=== PATIENT | male | born 1950 | race Caucasian/White ===

== ENCOUNTER → 2021-10-08 17:11 | Outpatient (BNVA) | payer BC, SELFPAY | PROVIDERS: Visit Provider Family Medicine | DX: E11.9 Type 2 diabetes mellitus without complications (principal); E78.00 Pure hypercholesterolemia, unspecified; I10 Essential (primary) hypertension; Z12.5 Encounter for screening for malignant neoplasm of prostate | CPT/HCPCS: 80053; 80061; 83036; 84443; 85025; G0103 ==

== ENCOUNTER → 2022-03-10 12:44 | Outpatient (BNVA) | payer BC, SELFPAY | PROVIDERS: Visit Provider Family Medicine | DX: E11.9 Type 2 diabetes mellitus without complications (principal); Z79.4 Long term (current) use of insulin; Z12.5 Encounter for screening for malignant neoplasm of prostate; E78.00 Pure hypercholesterolemia, unspecified; I10 Essential (primary) hypertension | CPT/HCPCS: 80053; 80061; 83036; 84443; 85025; G0103 ==

== ENCOUNTER → 2022-08-17 13:13 | Outpatient (BNVA) | payer BC, SELFPAY | PROVIDERS: Visit Provider Family Medicine | DX: E11.9 Type 2 diabetes mellitus without complications (principal); E78.00 Pure hypercholesterolemia, unspecified; I10 Essential (primary) hypertension | CPT/HCPCS: 80053; 80061; 83036; 84443; 85025 ==

== ENCOUNTER → 2023-01-22 11:51 | Outpatient (BNVA) | payer BC, SELFPAY | PROVIDERS: Visit Provider Family Medicine | DX: R07.89 Other chest pain (principal); E11.9 Type 2 diabetes mellitus without complications; Z79.4 Long term (current) use of insulin; E78.00 Pure hypercholesterolemia, unspecified; I10 Essential (primary) hypertension | CPT/HCPCS: 80053; 80061; 83036; 84443; 85025 ==

== ENCOUNTER → 2023-02-24 16:00 | Outpatient (BNVA) | payer BC, SELFPAY | PROVIDERS: PCP Family Medicine; Visit Provider Nurse Practitioner Family | DX: R63.4 Abnormal weight loss (principal) | CPT/HCPCS: 80053; 84443; 85025 ==

== ENCOUNTER 2023-03-01 15:48 | Observation (INO) | payer MEDICARE, SELFPAY ==
[2023-03-01] VITALS (11 sets, daily range): BP systolic 114–149; BP diastolic 70–91; PULSE 92–149; RESP 16–18; TEMP 36.3–36.6; O2SAT 95–98; BMI 25.9
--- NOTE | 2023-03-01 18:27 | XRR_ITS ---
PROCEDURE INFORMATION: Exam: XR Chest Exam date and time: 03/01/2023 6:48 PM Age: 73 years old Clinical indication: Other: N/v; Additional info: Fall TECHNIQUE: Imaging protocol: Radiologic exam of the chest. Views: 1 view. COMPARISON: CT abdomen pelvis w con* [id number] 03/01/2023 6:38 PM FINDINGS: Lungs: Unremarkable. No consolidation. Pleural spaces: Unremarkable. No pleural effusion. No pneumothorax. Heart/Mediastinum: Unremarkable. No cardiomegaly. Bones/joints: Unremarkable. XR/XR chest 1V portable [id number] IMPRESSION: No acute findings.
--- NOTE | 2023-03-01 18:27 | CTR_ITS ---
PROCEDURE INFORMATION: Exam: CT Abdomen And Pelvis With Contrast Exam date and time: 03/01/2023 6:38 PM Age: 73 years old Clinical indication: Abdominal pain; Generalized; Additional info: Abd pain TECHNIQUE: Imaging protocol: Computed tomography of the abdomen and pelvis with contrast. Radiation optimization: All CT scans at this facility use at least one of these dose optimization techniques: automated exposure control; mA and/or kV adjustment per patient size (includes targeted exams where dose is matched to clinical indication); or iterative reconstruction. Contrast material: OMNI 350; Contrast volume: 100 ml; Contrast route: INTRAVENOUS (IV); REPORTING DATA: Count of CT and Cardiac NM exams in prior 12 months: This patient has received 0 known CTs and 0 known cardiac nuclear medicine studies in the 12 months prior to the current study. COMPARISON: No relevant prior studies available. RADIATION DOSE METRICS: Total DLP (mGy-cm): 1034 FINDINGS: Coronary arteries: Coronary artery atherosclerotic calcifications. Liver: Cirrhotic liver. Hepatic steatosis. Gallbladder and bile ducts: Cholelithiasis suspected. Pancreas: Pancreatic body 3.4 cm complex cystic mass, likely reflecting a primary pancreatic malignancy. Spleen: Normal. No splenomegaly. Adrenal glands: Normal. No mass. Kidneys and ureters: Left kidney punctate nonobstructing calyceal stone. Stomach and bowel: Diverticulosis without diverticulitis. Appendix: No evidence of appendicitis. Intraperitoneal space: Diffuse probable omental caking suggestive of diffuse metastatic disease of the omentum. Large amount of abdominal ascites. Vasculature: Unremarkable. No abdominal aortic aneurysm. Lymph nodes: Unremarkable. No enlarged lymph nodes. Urinary bladder: Unremarkable as visualized. Reproductive: Unremarkable as visualized. Bones/joints: Left femur intertrochanteric region 13 mm sclerotic bony lesion, indeterminate, whole body nuclear medicine bone scan could further characterize this. L1 and L2 probable vertebral body hemangiomas. Soft tissues: Small bilateral fat containing inguinal hernias without bowel or inflammation. CT/CT abdomen pelvis w con* [id number] IMPRESSION: 1. 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 2. 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 3. Coronary artery atherosclerotic calcifications. 4. Cirrhotic liver. 5. Hepatic steatosis. 6. Large amount of abdominal ascites. 7. Cholelithiasis suspected. 8. Diverticulosis without diverticulitis. 9. Small bilateral fat containing inguinal hernias without bowel or inflammation. 10. Left femur intertrochanteric region 13 mm sclerotic bony lesion, indeterminate, whole body nuclear medicine bone scan could further characterize this. 11. L1 and L2 probable vertebral body hemangiomas. 12. Left kidney punctate nonobstructing calyceal stone.
--- NOTE | 2023-03-01 18:30 | ECG_ITS ---
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 Measurements Intervals [place] Rate: 95 P: -69 AK: 149 QRS: -52 QRSD: 109 T: 117 QT: 358 QTc: 450 Interpretive Statements ECTOPIC ATRIAL RHYTHM LEFT ANTERIOR FASCICULAR BLOCK [QRS AXIS <= -45, QR IN I, RS IN II] POSSIBLE ANTERIOR MYOCARDIAL INFARCTION , PROBABLY OLD [30 ms Q WAVE IN V3/V4, OR R < 0.2 mV IN V4] MODERATE T-WAVE ABNORMALITY, CONSIDER LATERAL ISCHEMIA [-0.1+ mV T-WAVE IN I/aVL/V5/V6] No previous ECG available for comparison Electronically Signed On 03-02-2023 5:49:12 CDT by Paulina Crowe M.D. [id number]
--- NOTE | 2023-03-01 18:31 | ED_ITS ---
HPI - Abdominal Pain General: Chief Complaint: Abdominal Pain Stated Complaint: n/v Time Seen by Provider: 03/01/23 18:19 Source: patient Mode of arrival: ambulatory Limitations: no limitations History of Present Illness: 73-year-old male who states he has been have increased abdominal swelling and pain over the last 2 months he states that over the last 2 days he has noticed his abdomen is gotten very swollen he had multiple falls denies any specific injury really. He states he is getting concerned due to the degree of swelling. Denies any constipation denies any vomiting or diarrhea. Associated Symptoms: Denies chills, fever(s), nausea and vomiting Review of Systems Const: Denies: fever(s) or chills Eyes: Denies: blurry vision ENMT: Denies: throat pain or dental pain Card: Denies: chest pain Resp: Denies: dyspnea GI: Reports: abdominal pain; Denies: nausea or vomiting Musc: Denies: neck pain or back pain Skin/Breast: Denies: rash Neuro: Denies: headache(s) PFSH ED PFSH: Medical History Diabetes type 2, controlled High blood cholesterol Hypertension Surgical History H/O heart artery stent Family History Mother Cancer colon Sister Cancer Diabetes Brother Cancer Brother Dementia Grandmother Dementia Father Clotting disorder Other Hyperlipidemia Hypertension Denies family history of CAD (coronary artery disease) Psychiatric illness Chronic kidney disease (CKD) Suicide Anesthesia complication Bleeding disorder Family history of premature coronary artery disease Lung disease Stroke Social History Smoking and tobacco status: former smoker Alcohol intake: former Substance/Drug Use: never Household members: significant other Marital status: Life Partner service: No Current occupational status: retired Current gender identity: Male Physical Exam Const: COMMON NORMALS: patient oriented x3 HENMT: COMMON NORMALS: normocephalic and atraumatic HEAD & SCALP: normocephalic and atraumatic Eye: COMMON NORMALS: EOMs intact bilaterally Neck/C-Spine: COMMON NORMALS: full ROM and supple Chest: COMMONS NORMALS: normal inspection of the chest and normal palpation of entire chest wall Resp: COMMON NORMALS: normal respiratory effort, No retractions, No use of accessory muscles and clear to auscultation bilaterally AUSCULTATION: clear to auscultation bilaterally Cardio: COMMON NORMALS: regular rate, regular rhythm and No murmurs present (Cardio) RATE: regular rate RHYTHM: regular rhythm GI: COMMON NORMALS: Soft to palpation PALPATION: Yes Soft to palpation OTHER: diffuse swelling to abdomen no tenderness Extremity: COMMON NORMALS: normal to inspection and full ROM Neuro: COMMON NORMALS: patient oriented x3, moves all extremities and no focal motor deficits Psych: COMMON NORMALS: mental status grossly normal, Normal thought process present and cooperative THOUGHT PROCESS: Normal thought process present Skin: COMMON NORMALS: no rashes or lesions noted and no wounds GENERAL SKIN EXAM: no rashes or lesions noted Course Vital Signs: Vital signs: Vital Signs Temperature 97.3 F L 03/01/23 15:58 Pulse Rate 106 H 03/01/23 15:58 Respiratory Rate 16 03/01/23 18:53 Blood Pressure 114/70 03/01/23 15:58 Pulse Oximetry 97 03/01/23 15:58 Oxygen Delivery Me thod Room Air 03/01/23 15:58 MDM - Abdominal Pain Medical Decision Making Patient presents with increasing weakness along abdominal swelling and multiple falls and weight loss over the last 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 Medical Records I reviewed the patient's medical records. Lab Data I reviewed the patient's lab results. 03/01/23 18:30 03/01/23 18:30 Labs/Radiology: Radiology Impressions Abdomen/Pelvis CT 03/01/23 18:27 IMPRESSION: 1. 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 2. 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 3. Coronary artery atherosclerotic calcifications. 4. Cirrhotic liver. 5. Hepatic steatosis. 6. Large amount of abdominal ascites. 7. Cholelithiasis suspected. 8. Diverticulosis without diverticulitis. 9. Small bilateral fat containing inguinal hernias without bowel or inflammation. 10. Left femur intertrochanteric region 13 mm sclerotic bony lesion, indeterminate, whole body nuclear medicine bone scan could further characterize this. 11. L1 and L2 probable vertebral body hemangiomas. 12. Left kidney punctate nonobstructing calyceal stone. Chest X-Ray 03/01/23 18:27 IMPRESSION: No acute findings. Laboratory Results WBC 16.3 10^3/uL (4.0-10.0) H 03/01/23 18:30 RBC 4.61 10^6/uL (4.1-5.3) 03/01/23 18:30 Hgb 13.4 g/dL (11.7-16.6) 03/01/23 18: Hct 40.5 % (42.0-52.0) L 03/01/23 18:30 MCV 87.9 fl (80-94) 03/01/23 18: MCH 29.1 pg (28.0-34.0) 03/01/23 18:30 MCHC 33.1 g/dL (30.0-36.0) 03/01/23 18:30 RDW 14.0 % (12.1-15.1) 03/01/23 18:30 Plt Count 388 10^3/cmm (130-400) 03/01/23 18:30 MPV 10.1 fL (7.4-10.4) 03/01/23 18:30 Neut % (Auto) 89.1 % 03/01/23 18:30 Lymph % (Auto) 5.5 % 03/01/23 18:30 [place] % (Auto) 4.7 % 03/01/23 18:30 Eos % (Auto) 0.0 % 03/01/23 18:30 Baso % (Auto) 0.1 % 03/01/23 18:30 Neut # (Auto) 14.56 10^3/uL (1.8-7.7) H 03/01/23 18:30 Lymph # (Auto) 0.9 10^3/uL (0.8-4.8) 03/01/23 18:30 [place] # (Auto) 0.8 10^3/uL (0.2-0.9) 03/01/23 18:30 Eos # (Auto) 0.0 10^3/uL (0.0-0.8) 03/01/23 18:30 Baso # (Auto) 0.0 10^3/uL (0.0-0.1) 03/01/23 18:30 Nucleated RBC % (auto) 0 % 03/01/23 18: Nucleated RBCs # 0.0 /100WBC 03/01/23 18:30 Sodium 132 mmol/L (136-145) L 03/01/23 18:30 Potassium 6.0 mmol/L (3.5-5.1) H 03/01/23 18:30 Chloride 94 mmol/L (98-107) L 03/01/23 18: Carbon Dioxide 20 mmol/L (22-29) L 03/01/23 18: Anion Gap 24.0 (5-19) H 03/01/23 18:30 BUN 62 mg/dL (8-23) H 03/01/23 18:30 Creatinine 1.6 mg/dL (0.7-1.2) H 03/01/23 18:30 GFR Calculation Not Reportable 03/01/23 18: Glucose 224 mg/dL (65-115) H 03/01/23 18:30 Calculated Osmolality 299 mOsm/kg (285-295) H 03/01/23 18:30 Calcium 8.6 mg/dL (8.5-10.5) 03/01/23 18:30 Total Bilirubin 0.4 mg/dL (0.15-1.2) 03/01/23 18:30 AST 28 U/L (0-40) 03/01/23 18:30 ALT 29 U/L (0-41) 03/01/23 18:30 Alkaline Phosphatase 131 U/L (40-130) H 03/01/23 18:30 Total Protein 6.2 g/dL (6.6-8.7) L 03/01/23 18: Albumin 3.5 g/dL (3.5-5.2) 03/01/23 18: Globulin 2.7 g/dL (1.3-4.6) 03/01/23 18: Lipase 42 U/L (13-60) 03/01/23 18:30 EKG Data EKG 1: I personally reviewed and interpreted this EKG as follows: EKG interpretation date: 03/01/23 EKG interpretation time: 18:53 Interpretation: nsr hr [address] or t wave abnormalities [id number] qtc 410 Discharge Plan Discharge Patient Disposition: Admitted As Inpatient Clinical Impression: Mass of pancreas, Weakness, Abdominal ascites Condition: Stable Prescriptions: No Action hydrocodone-acetaminophen 5-325 mg tablet 1 tab PO Q4H PRN ibuprofen 200 mg capsule 200 mg PO Q6H PRN Glucagon Emergency Kit (human) 1 mg recon soln 1 mg SUBCUT Q20M PRN (Reason: hypoglycemia) Qty: 1 1RF Rx Instructions: until target blood sugar attained lisinopril 10 mg tablet 10 mg PO DAILY Qty: 90 3RF flu vacc [id number](65yr up)-PF 240 mcg/0.7 mL syringe 0.7 ml IM ONCE Qty: 0.7 0RF bupropion HCl 150 mg tablet sustained-release 12 hr 150 mg PO BID Qty: 180 3RF glimepiride [Amaryl] 4 mg tablet 4 mg PO DAILY Qty: 90 1RF metformin 500 mg tablet extended release 24 hr See Rx Instructions .ROUTE .COMPLEX Qty: 240 2RF Dose Instruction: Take 2 tablets by mouth twice daily Rx Instructions: Take 2 tablets by mouth twice daily rosuvastatin 20 mg tablet See Rx Instructions .ROUTE .COMPLEX Qty: 90 1RF Dose Instruction: Take 1 tablet by mouth once daily Rx Instructions: Take 1 tablet by mouth once daily insulin lispro 100 unit/mL insulin pen 10 unit SUBCUT TID Qty: 15 3RF Combigan 0.2-0.5 % drops 1 drp ophthalmic (eye) BID Qty: 10 2RF Toujeo Max U-300 SoloStar 300 unit/mL (3 mL) insulin pen See Rx Instructions .ROUTE .COMPLEX Qty: 6 2RF Dose Instruction: INJECT 60 UNITS SUBCUTANEOUSLY ONCE DAILY 32 UNITS IN THE MORNING AND 28 UNITS AT NIGHT. NEED APPOINTMENT FOR NEXT REFILL Rx Instructions: INJECT 60 UNITS SUBCUTANEOUSLY ONCE DAILY 32 UNITS IN THE MORNING AND 28 UNITS AT NIGHT. (DME) OneTouch Ultra Test Strip See Rx Instructions .ROUTE .COMPLEX Qty: 300 0RF Dose Instruction: USE 1 STRIP TO CHECK GLUCOSE THREE TIMES DAILY Rx Instructions: USE 1 STRIP TO CHECK GLUCOSE THREE TIMES DAILY metoprolol tartrate 50 mg tablet 50 mg PO BID Qty: 60 3RF ondansetron HCl 4 mg tablet 4 mg PO TID PRN (Reason: nausea and vomiting) 7 Days Qty: 21 0RF amlodipine 10 mg tablet See Rx Instructions .ROUTE .COMPLEX Qty: 90 0RF Dose Instruction: Take 1 tablet by mouth once daily Rx Instructions: Take 1 tablet by mouth once daily Referrals: Racheal Moraes MD [Primary Care Provider] - Coding Level of Care Code ED Sample Finisher for Kgg Marty
[2023-03-01 18:46] LABS: Basophils % 0.1 %; Hematocrit 40.5 % (42.0-52.0); Hemoglobin 13.4 g/dL (11.7-16.6); Lymphocytes # 0.9 10^3/uL (0.8-4.8); Lymphocytes % 5.5 %; Mean Corpuscular HGB Conc 33.1 g/dL (30.0-36.0); Mean Corpuscular Hemoglobin 29.1 pg (28.0-34.0); Mean Corpuscular Volume 87.9 fl (80-94); Mean Platelet Volume 10.1 fL (7.4-10.4); Monocytes # 0.8 10^3/uL (0.2-0.9); Monocytes % 4.7 %; Neutrophils # 14.56 10^3/uL (1.8-7.7); Neutrophils % 89.1 %; Nucleated Red Blood Cells % 0 %; Platelet Count 388 10^3/cmm (130-400); Red Blood Count 4.61 10^6/uL (4.1-5.3); White Blood Count 16.3 10^3/uL (4.0-10.0)
[2023-03-01] MEDS: morphine 4 mg/mL SDV 1 mL IVP (18:53)
[2023-03-01 19:09] LABS: Alanine Aminotransferase 29 U/L (0-41); Albumin Level 3.5 g/dL (3.5-5.2); Alkaline Phosphatase 131 U/L (40-130); Blood Urea Nitrogen 62 mg/dL (8-23); Calcium 8.6 mg/dL (8.5-10.5); Carbon Dioxide 20 mmol/L (22-29); Chloride 94 mmol/L (98-107); Globulin 2.7 g/dL (1.3-4.6); Glucose 224 mg/dL (65-115); Lipase 42 U/L (13-60); Osmolality Calculated 299 mOsm/kg (285-295); Sodium 132 mmol/L (136-145); Total Bilirubin 0.4 mg/dL (0.15-1.2); Total Protein 6.2 g/dL (6.6-8.7)
[2023-03-01 19:15] LABS: Aspartate Amino Transferase 28 U/L (0-40)
[2023-03-01] MEDS: sodium chloride 0.9% 1,000 ML 999 ML IV (20:11)
--- NOTE | 2023-03-01 20:53 | P.HP_ITS ---
Providers/Chief Complaint Admitting Physician: Khushboo Linares MD Primary Care Provider: Rachael Moraes MD Chief Complaint: n/v History of Present Illness Vikram Hebert is a 73 year old male With past medical history of type 2 diabetes, CAD status post PCI x3 stents, glaucoma, hyperlipidemia, hypertension presented to the hospital for increasing abdominal pain that he has had for the last 2 months. Over the last 2 days he has noticed that his abdomen has gotten very swollen. He also recently saw his primary care doctor Dr. Fountain regarding similar issue. He has had 44 pound weight loss in a year and 10 pound weight loss in the last 1 month. He did have a spider bite on site of left leg and was started on Bactrim and this has been improving however was still very tender but his new complaint was marked distention poor appetite and nausea. He was ordered a CAT scan of the abdomen and chest with contrast that he has not gotten done yet. He was also ordered basic labs. Today he presents to the ER with worsening complaint of abdominal pain. He is also been feeling very weak and has had multiple falls recently. He denies hitting his head or having any particular injury from the falls. Denies chills, fever,diarrhea at this time. Does report nausea for the last 5 to 7 days. He states until EMS gave him nausea medication he was vomiting up to now. Also complains of left lower quadrant and right lower quadrant pain due to abdominal fullness. Lives at home with his . Patient reports a history of colon cancer in his mother, sister, brother. Sister also had blood cancer. Patient's last colonoscopy was 10 years ago. He does state that he has been somewhat constipated for the last 1 month. He has been using stool softeners and is able to go eventually. On arrival to ER BP 114/70, respirate 16, pulse 106, temperature 97.3, saturating 97% on room air. CT abdomen pelvis was done which showed Abdomen/Pelvis CT 03/01/23 18:27 IMPRESSION: 1. 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 2. 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 3. Coronary artery atherosclerotic calcifications. 4. Cirrhotic liver. 5. Hepatic steatosis. 6. Large amount of abdominal ascites. 7. Cholelithiasis suspected. 8. Diverticulosis without diverticulitis. 9. Small bilateral fat containing inguinal hernias without bowel or inflammation. 10. Left femur intertrochanteric region 13 mm sclerotic bony lesion, indeterminate, whole body nuclear medicine bone scan could further characterize this. 11. L1 and L2 probable vertebral body hemangiomas. 12. Left kidney punctate nonobstructing calyceal stone. Chest x-ray did not show any acute findings WBC 16.3, hemoglobin 13.4, platelets 388, sodium 132, potassium 6, anion gap 24, creatinine 1.6. Lipase 42. Medications/Allergies Home Medications Medication Instructions Recorded Confirmed Last Taken Type glucagon 1 mg solution for 1 mg SUBCUT Q20M PRN hypoglycemia 10/08/21 02/24/23 Unknown Rx injection (Glucagon Emergency Kit) #1 ea hydrocodone 5 mg-acetaminophen 325 1 tab PO Q4H PRN 10/08/21 02/24/23 Unknown History mg tablet ibuprofen 200 mg capsule 200 mg PO Q6H PRN 10/08/21 02/24/23 Unknown History brimonidine 0.2 %-timolol 0.5 % 1 drp ophthalmic (eye) BID #10 mL 08/17/22 02/24/23 Unknown Rx eye drops (Combigan) bupropion HCl 150 mg tablet,12 hr 150 mg PO BID #180 tabs 08/17/22 02/24/23 Unknown Rx sustained-release glimepiride 4 mg tablet (Amaryl) 4 mg PO DAILY #90 tabs 08/17/22 02/24/23 Unknown Rx insulin lispro 100 unit/mL 10 unit (0.1 mL) SUBCUT TID #15 mL 08/17/22 02/24/23 Unknown Rx subcutaneous pen metformin 500 mg tablet,extended See Rx Instructions .Route 08/17/22 02/24/23 Unknown Rx release 24 hr .COMPLEX #240 tabs rosuvastatin 20 mg tablet See Rx Instructions .Route 08/17/22 02/24/23 Unknown Rx .COMPLEX #90 tabs insulin glargine U-300 conc 300 See Rx Instructions .Route 09/23/22 02/24/23 Unknown Rx unit/mL (3 mL) subcutaneous pen .COMPLEX #6 mL (Toujeo Max U-300 SoloStar) lisinopril 10 mg tablet 10 mg PO DAILY #90 tabs 11/03/22 02/24/23 Unknown Rx blood sugar diagnostic (OneTouch #300 ea 12/04/22 02/24/23 Unknown Rx Ultra Test strips) metoprolol tartrate 50 mg tablet 50 mg PO BID #60 tabs 12/16/22 02/24/23 Unknown Rx amlodipine 10 mg tablet See Rx Instructions .Route 02/26/23 Unknown Rx .COMPLEX #90 tabs ondansetron HCl 4 mg tablet 4 mg PO TID PRN nausea and 02/26/23 Unknown Rx vomiting 7 days #21 tabs Allergies Allergy/AdvReac Type Severity Reaction Status Date / Time ondansetron [From Zofran] Allergy ADR-Nausea Verified 03/01/23 15:58 Penicillins Allergy ALGY-Hives Verified 03/01/23 15:58 PFSH Acute PFSH: Medical History Diabetes type 2, controlled High blood cholesterol Hypertension Surgical History H/O heart artery stent Family History Mother Cancer colon Sister Cancer Diabetes Brother Cancer Brother Dementia Grandmother Dementia Father Clotting disorder Other Hyperlipidemia Hypertension Denies family history of CAD (coronary artery disease) Psychiatric illness Chronic kidney disease (CKD) Suicide Anesthesia complication Bleeding disorder Family history of premature coronary artery disease Lung disease Stroke Social History Smoking and tobacco status: former smoker Alcohol intake: former Substance/Drug Use: never Household members: significant other Marital status: Life Partner service: No Current occupational status: retired Current gender identity: Male Vitals/I&O/Wt Last Vital Signs Temp 97.3 F L 03/01/23 15:58 Pulse 106 H 03/01/23 15:58 Resp 16 03/01/23 18:53 BP 116/91 03/01/23 20:28 Pulse Ox 98 03/01/23 18:30 O2 Del Method Room Air 03/01/23 18:30 Weight last 48 hrs Weight 91.626 kg Physical Exam Narrative: General: Alert oriented x3, patient seen laying in bed appearing comfortable at this time. HEENT: Normocephalic, atraumatic, EOMI Cardio: Regular rate rhythm, normal S1-S2 Respiratory: Diminished at bases bilaterally GI: Abdomen soft, significantly distended, tense abdomen, right lower quadrant, left lower quadrant tenderness present to palpation., bowel sounds + no apparent guarding Behavior: Appears sad when talking about mass found in abdomen. Extremities: No edema noted at this time. 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 Zofran for nausea ? Morphine 2 mg every 4 hours as needed for pain ? Patient interested in diagnostic work-up and treatment ? Order CT-guided biopsy of pancreatic head for discussing with patient's . Patient would like to have a family meeting with himself his and the doctor in a.m. before proceeding further. ? Consider inpatient oncology consult. Patient would like to get treatment as soon as possible. Consider Mediport placement ? Normal saline 125 cc/h ? Creatinine 1.4 today. Most likely due to dehydration prerenal injury. Continue on IV fluids at this time. MP in a.m. monitor kidney function. Patient did use Bactrim recently for spider bite infection. That could possibly be contributing to hyperkalemia, hyponatremia, LEXII. ? WBC 16.3 most likely reactive. I do not see a clear source of infection at this time. Monitor off antibiotics for now. Check procalcitonin, TSH ? Sliding scale insulin at this time -N.p.o. at midnight in case of biopsy in a.m. ?Patient's medications will need to confirm from pharmacy in a.m. ? Dietitian consult ? PT/OT ? Repeat BMP as initial sample was hemolyzed. Potassium 6.0. 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 Telehealth technology used during the visit includes video and audio. This patient encounter is appropriate and reasonable under the circumstances given the patient?s particular presentation at this time. The patient has been advised of the potential risks and limitations of this mode of treatment (including but not limited to the absence of in-person examination at this time) and has agreed to be treated by an off-site physician for this visit. If deemed clinically necessary from this telehealth visit, or if condition or consent for telehealth visit changes, an in-person visit will be arranged. For this encounter, total time for the origination of telehealth care on this date is as shown. Other Coding Information Focused coding review requested Diagnoses Mass of pancreas K86.89 Weakness R53.1 Abdominal ascites R18.8 Fall W19.XXXA Unexplained weight loss R63.4 Abdominal distension R14.0 H/O heart artery stent Z95.5 Diabetes mellitus, type II, insulin dependent E11.9; Z79.4 Diabetes type 2, controlled E11.9 High blood cholesterol E78.00 Hypertension I10 Acute kidney injury N17.9 Hyperkalemia E87.5 Dehydration E86.0
--- NOTE | 2023-03-01 21:31 | PC.NURSE ---
Report called to Deann DIETZ on Med-Surg
[2023-03-01 22:00] LABS: Lactic Sepsis W/Reflex 1.4 mmol/L (0.5-2.2)
[2023-03-01 22:07] LABS: Estmated Average Glucose 140; Hemoglobin A1C 6.5 % (4.0-6.0)
[2023-03-01 22:10] LABS: Procalcitonin 0.48 ng/mL (0-0.5); Thyroid Stimulating Hormone 0.61 uIU/mL (0.27-4.20)
[2023-03-01] MEDS: morphine 4 mg/mL SDV 1 mL 2 MG IVP (22:15)
[2023-03-01] MEDS: pantoprazole 40 mg SDV IVP (22:17)
[2023-03-01] MEDS: sodium chloride 0.9% 1,000 ML 125 ML IV (22:18)
[2023-03-01 22:21] LABS: Anion Gap 18.2 (5-19); Blood Urea Nitrogen 60 mg/dL (8-23); Calcium 8.8 mg/dL (8.5-10.5); Carbon Dioxide 23 mmol/L (22-29); Chloride 95 mmol/L (98-107); Glucose 189 mg/dL (65-115); Osmolality Calculated 294 mOsm/kg (285-295); Potassium 5.2 mmol/L (3.5-5.1); Sodium 131 mmol/L (136-145)
[2023-03-01] MEDS: heparin 5,000 unit/mL INJ 1 mL 5000 UNIT SUBCUT (22:29)
[2023-03-01 22:39] LABS: Carcinoembryonic Antigen 578.4 ng/mL (0.0-4.7)
[2023-03-02 00:13] LABS: Cancer Antigen 19 9 > 10000 U/mL (0-35)
[2023-03-02 00:36] LABS: Urine Appearance SL Hazy (CLEAR); Urine Color Yellow (Yellow)
[2023-03-02 00:37] LABS: Add Urine Culture? No; Add Urine Microscopic? YES; Amorphous Sediment Urine 2+ /hpf; Bacteria Urine 1+ /hpf; Bilirubin Urine Neg (Negative); Blood Urine 2+ (Negative); Glucose Urine UA Norm (Normal); Ketones Urine 1+ (Negative); Leukocyte Esterase Urine Negative (Negative); Mucus Urine 2+ /hpf; Nitrate Urine Negative (Negative); Protein Urine 1+ (Negative); Squamous Epithelial Cell Urine 0-4 /hpf (0-5); Urobilinogen Urine Neg (Negative); pH Urine 5 (5-7)
[2023-03-02 04:00] VITALS: BP 115/69; PULSE 92; RESP 18; TEMP 36.8; O2SAT 96
[2023-03-02] MEDS: sodium chloride 0.9% 1,000 ML 125 ML IV (05:29)
[2023-03-02 05:34] LABS: Basophils % 0.1 %; Hematocrit 35.6 % (42.0-52.0); Hemoglobin 11.7 g/dL (11.7-16.6); Lymphocytes # 1.2 10^3/uL (0.8-4.8); Lymphocytes % 8.5 %; Mean Corpuscular HGB Conc 32.9 g/dL (30.0-36.0); Mean Corpuscular Hemoglobin 29.2 pg (28.0-34.0); Mean Corpuscular Volume 88.8 fl (80-94); Mean Platelet Volume 10.2 fL (7.4-10.4); Monocytes # 1.5 10^3/uL (0.2-0.9); Monocytes % 10.3 %; Neutrophils # 11.84 10^3/uL (1.8-7.7); Neutrophils % 80.7 %; Nucleated Red Blood Cells % 0 %; Platelet Count 331 10^3/cmm (130-400); Red Blood Count 4.01 10^6/uL (4.1-5.3); White Blood Count 14.7 10^3/uL (4.0-10.0)
[2023-03-02 05:52] LABS: Alanine Aminotransferase 24 U/L (0-41); Albumin Level 2.9 g/dL (3.5-5.2); Alkaline Phosphatase 120 U/L (40-130); Anion Gap 17.6 (5-19); Aspartate Amino Transferase 21 U/L (0-40); Blood Urea Nitrogen 53 mg/dL (8-23); Calcium 8.6 mg/dL (8.5-10.5); Carbon Dioxide 21 mmol/L (22-29); Chloride 99 mmol/L (98-107); Glucose 125 mg/dL (65-115); Magnesium 2.2 mg/dL (1.7-2.3); Osmolality Calculated 292 mOsm/kg (285-295); Potassium 4.6 mmol/L (3.5-5.1); Sodium 133 mmol/L (136-145); Total Bilirubin 0.3 mg/dL (0.15-1.2); Total Protein 5.9 g/dL (6.6-8.7)
[2023-03-02 07:32] LABS: Glucose Point of Care 119 mg/dL (70-110)
[2023-03-02 08:00] VITALS: BP 112/69; PULSE 91; RESP 17; TEMP 36.4; O2SAT 95
[2023-03-02] MEDS: metoprolol tartrate 50 mg Tablet PO ×2 (09:58→18:28)
[2023-03-02] MEDS: buPROPion SR (12 HR) 150 mg Tablet PO ×2 (09:58→18:28)
--- NOTE | 2023-03-02 10:37 | PC.CHAP ---
Pastoral Care Encounter/Spiritual Assessment Type of Contact [] Declined physical therapy manager visit [] Patient/Family/Request visit [] Outpatient visit [] Follow-up visit [] Physician referral [] Code/Alert [x] Routine visit [] Staff referral [] Actively dying [] Patient sleeping [] Family support [] [] Out of room [] Palliative care [] [] Receiving care in room [] Pre-surgical visit [] Trauma [] Long length of stay [] ICU visit [] Other: Relational/Emotional Strength [x] Patient feels connected with others/family/visitors/staff [] Distress [] Loneliness/isolation [] Abandonment Spirituality of Patient [x] Person of Laura [x] Attends Catholic of their Laura [x] Believes in Prayer [x] Reads Bible or Religion materials [] There are 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 Interventions [x] Prayer [] Active listening [] Non-anxious presence [] Spiritual/emotional support [] Crisis/trauma care [] Spiritual counseling [] Bereavement support [] Provided bereavement packet [] Provided Bible/devotional materials [] Provided toy/stuffed animal, coloring book to patient or family member [] Provided Communion [] Anointing/Lar[place] [] Salvation [x] Completed spiritual assessment [] Other: Impact on Illness or Injury [] Angry [] Fearful [] Anxious [] Often cries [] Exhaustion [] Unable to work [] Unable to attend restorationism [] Unable to walk/stand [] Unable to read [] Unable to drive [] Unable to eat/drink [] Unable to sleep [] Unable to be with family [] Patient intubated [] Other: Summary Time spent with patient 10 min
--- NOTE | 2023-03-02 10:46 | PC.PHAR ---
Addendum entered by Catie Carrasco 03/02/23 12:06: pt states he takes metformin 500mg takes 1000mg in the am and 500mg hs rx filled 12/03/22 90f/d 1000mg bid Addendum entered by Catie Carrasco 03/02/23 12:00: pts states in december dced the pts toujeo max u-300,insulin lispro and lisinopril 10mg daily-pt states that dced his combigan drops-pt states he was ordering some kind of medication offline for his prostate and taking once a day states he is unsure of the name pt states not taken in a month pts states she is unsure what medication it was he was ordering- Original Note: pt states he knows some of his meds but states to call his henrik [phone]-called no answer
--- NOTE | 2023-03-02 11:04 | US_ITS ---
WS: [id number] ULTRASOUND-GUIDED THERAPEUTIC AND DIAGNOSTIC PARACENTESIS Procedure, risks, and complications have been explained to the patient. Consent is obtained. Utilizing aseptic technique and 1% buffered lidocaine, a small dermatome was made through which a 5 F rench Yueh catheter was inserted. Approximately 6000 ml of clear yellow peritoneal fluid was obtained without difficulty. No complications encountered. Specimen collected for analysis. Ultrasound evaluation also performed to attempt visualization of omental implants. No omental implant s are identified. US/US paracentesis abd w [id number] IMPRESSION: Uncomplicated paracentesis yielding 6000 ml of peritoneal fluid. Fluid specimen collected for analysis. Previously described omental implants are not identified by ultrasound.
[2023-03-02 11:29] LABS: Glucose Point of Care 149 mg/dL (70-110)
[2023-03-02 12:00] VITALS: BP 116/62; PULSE 85; RESP 18; TEMP 36.7; O2SAT 95
[2023-03-02 12:04] LABS: INR 1.08 (0.8-1.2)
[2023-03-02 12:06] LABS: Prothrombin Time (Patient) 14.3 Seconds (12-15.1)
[2023-03-02] MEDS: albumin 25 G/100 ML BAG 60 G IV ×2 (12:18→18:28)
[2023-03-02 12:22] LABS: Partial Thromboplastin Time 24.8 Seconds (23.9-36.7)
[2023-03-02 12:32] LABS: PT 50/50 Mix 13.9 Seconds (12.0-15.1); PTT 50/50 MIX 25.3 Seconds (23.9-36.7)
[2023-03-02 13:38] LABS: Cyto Order Verification No Order
[2023-03-02 13:48] LABS: Body Fluid Polynuclear #Cells 0.019; Body Fluid WBC 529 /uL
[2023-03-02 13:55] LABS: Apprearance, Body Fluid CLEAR; Color, Body Fluid YELLOW
[2023-03-02 13:56] LABS: Fluid Laterality ABDOMINAL; PATH Referral YES
[2023-03-02 14:22] LABS: Albumin Body Fluid 2.1 g/dL; Total Protein Body Fluid 3.6 g/dL
[2023-03-02] MEDS: sodium chloride 0.9% 1,000 ML 75 ML IV (14:49)
[2023-03-02] MEDS: enoxaparin 40 mg/0.4 mL Syringe SUBCUT (14:52)
[2023-03-02 16:00] VITALS: BP 105/59; PULSE 58; RESP 20; TEMP 36.7; O2SAT 93
[2023-03-02 16:50] LABS: Glucose Point of Care 165 mg/dL (70-110)
[2023-03-02] MEDS: insulin lispro 100 unit/1 mL SUBCUT (18:28)
--- NOTE | 2023-03-02 18:36 | PM.PN ---
Subjective Subjective: Patient was seen and examined this morning, he denied any significant abdominal pain, he has been afebrile overnight, his other vitals and labs have been reviewed.Patient underwent ultrasound-guided paracentesis, with removal of 6 L ascitic fluid. Medications: Medication Review Details: Generic Name Dose Route Start Last Admin Trade Name Freq PRN Reason Stop Dose Admin Bupropion HCl 150 mg 03/02/23 09:00 03/02/23 18:28 Bupropion Sr (12 Hr) 150 Mg Tablet PO 150 mg BID THEO Administration Enoxaparin Sodium 40 mg 03/02/23 14:00 03/02/23 14:52 Enoxaparin 40 Mg /0.4 Ml Syringe SUBCUT 40 mg Q24H THEO Administration Albumin Human 25 g in 100 mls @ 60 mls/hr 03/02/23 11:30 03/02/23 18:28 Albumin IV 03/03/23 05:09 60 mls/hr Q8H THEO Administration Sodium Chloride 1,000 mls @ 75 ml s/hr 03/02/23 14:00 03/02/23 14:49 Sodium Chloride 0.9% IV 75 mls/hr .[id number] THEO Administration Insulin Human Lisp ro 0 unit 03/02/23 08:00 03/02/23 18:28 Insulin Lispro 1 00 Unit/1 Ml SUBCUT 4 unit WM&BEDTIME THEO Administration Protocol Metoprolol Tartrat e 50 mg 03/02/23 09:00 03/02/23 18:28 Metoprolol Tartr ate 50 Mg Tablet PO 50 mg BID THEO Administration Morphine Sulfate 2 mg 03/01/23 20:53 03/01/23 22:15 Morphine 4 Mg/Ml Sdv 1 Ml IVP 2 mg Q4H PRN Administration SEVERE PAIN Pantoprazole Sodiu m 40 mg 03/01/23 21:00 03/01/23 22:17 Pantoprazole 40 Mg Sdv IVP 40 mg Q24H THEO Administration Vitals/I&O/Wt Last Vital Signs Temp 98.0 F 03/02/23 16:00 Pulse 58 L 03/02/23 16:00 Resp 20 H 03/02/23 16:00 BP 105/59 03/02/23 16:00 Pulse Ox 93 03/02/23 16:00 O2 Del Method Room Air 03/02/23 16:00 03/02/23 03/02/23 03/02/23 06:59 14:59 22:59 Intake Total 897.917 / 6522.995 2393 / 1100 Output Total 450 / 450 Balance 447.917 / 7273.882 9566 / 1100 Weight last 48 hrs Weight 91.626 kg Physical Exam Const: COMMON NORMALS: patient oriented x3 HENMT: COMMON NORMALS: normocephalic and atraumatic HEAD & SCALP: normocephalic and atraumatic Resp: COMMON NORMALS: clear to auscultation bilaterally EFFORT & INSPECTION: Yes symmetric chest movement AUSCULTATION: clear to auscultation bilaterally Cardio: COMMON NORMALS: regular rate, regular rhythm, S1 normal heart sound present, S2 normal heart sound present, No gallops present (Cardio), No murmurs present (Cardio), No rub (Cardio) and Peripheral pulses 2+ throughout RATE: regular rate RHYTHM: regular rhythm HEART SOUNDS: S1 normal heart sound present and S2 normal heart sound present PERIPHERAL PULSES: Peripheral pulses 2+ throughout GI: AUSCULTATION: Yes normoactive bowel sounds RECTAL EXAM: Yes deferred OTHER: Gross abdominal distention present with fluid thrills, normal bowel sounds, no tenderness. Extremity: COMMON NORMALS: no clubbing, cyanosis or edema and no pedal edema Neuro: COMMON NORMALS: patient oriented x3 Urinary Catheter Management: Ayala: Cath Placed During This Visit: yes Reason for Continuing Indwelling Catheter: Other Urinary Catheter Date of Insertion: 03/01/23 Urinary Catheter Time of Insertion: 23:05 Data 03/02/23 04:57 03/02/23 04:57 Micro: Microbiology 03/02/23 13:00 Gram Stain - Final Ascites Fluid A&P Assessment and plan (1) Mass of pancreas: (2) Weakness: (3) Abdominal ascites: (4) Fall: (5) Unexplained weight loss: (6) Abdominal distension: (7) H/O heart artery stent: (8) Diabetes mellitus, type II, insulin dependent: (9) Diabetes type 2, controlled: (10) High blood cholesterol: (11) Hypertension: (12) Acute kidney injury: (13) Hyperkalemia: (14) Dehydration: Plan 73-year-old male with past medical history of hypertension diabetes, coronary artery disease status post PCI dyslipidemia, presented with, increasing abdominal pain, abdominal fullness, significant weight loss, this has been going for the last 2 months, and have been worse in the last 2 days. Currently he is being managed for. Assessment: Symptomatic ascites secondary to decompensated liver cirrhosis: Possible AVALOS: CT abdomen and pelvis had shown: Cirrhotic liver, hepatic steatosis. Large ascites S/p ultrasound-guided paracentesis with removal of 6 Ls clear yellow ascitic fluid. Ascitic fluid analysis: Fluid WBC 529, fluid polynuclear WBC: 0.019 , ascitic fluid total protein 3.6, fluid albumin 2.1. SAA.8 is less then : 1.1 : Ruling out portal hypertension as a cause. Possibility of peritoneal carcinomatosis, pancreatic ascites, as a cause. SBP has been ruled out Follow hepatitis panel Currently on IV albumin Pancreatic head mass: Concerning for CA pancreas with omental as well as likely skeletal mets. 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 CEA: 578 , CA 19-9: > [id number] Case was extensively discussed with radiologist Dr. Tamez, as well as oncologist on-call Dr. Vizcarra the best modality for tissue diagnosis: Will be endoscopic ultrasound-guided fine-needle core pancreatic biopsy. Which can be done at a facility in [place]. For that patient will need transfer to [place]. Acute kidney injury: Possibly prerenal Admission serum creatinine was 1.4 Current serum creatinine is 1.1 Monitor intake output charting Avoid nephrotoxic's Monitor BMP Currently on IV hydration History of hypertension: Currently blood pressure is decently controlled Monitor blood pressure Amlodipine on hold History of diabetes: SSI, monitor fingerstick glucose Diabetic diet Hyperkalemia: Resolved Mild hyponatremia: Continue IV hydration Monitor serum sodium CODE STATUS: Full code DVT prophylaxis on Lovenox Attestations Medical Necessity Statement*: Needs to be in hospital for management of symptomatic ascites. Coding Level of Care Code Acute Code for Chg Fwd Diagnoses Mass of pancreas K86.89 Weakness R53.1 Abdominal ascites R18.8 Fall W19.XXXA Unexplained weight loss R63.4 Abdominal distension R14.0 H/O heart artery stent Z95.5 Diabetes mellitus, type II, insulin dependent E11.9; Z79.4 Diabetes type 2, controlled E11.9 High blood cholesterol E78.00 Hypertension I10 Acute kidney injury N17.9 Hyperkalemia E87.5 Dehydration E86.0
[2023-03-02 20:00] VITALS: BP 172/84; PULSE 86; RESP 17; TEMP 36.1; O2SAT 93
[2023-03-02 20:30] LABS: Glucose Point of Care 127 mg/dL (70-110)
[2023-03-02] MEDS: pantoprazole 40 mg SDV IVP (20:48)
[2023-03-03] VITALS (8 sets, daily range): BP systolic 102–120; BP diastolic 59–71; PULSE 67–85; RESP 16–18; TEMP 36.6–37; O2SAT 94–96
[2023-03-03] MEDS: morphine 4 mg/mL SDV 1 mL 2 MG IVP ×3 (01:15→15:01)
[2023-03-03] MEDS: albumin 25 G/100 ML BAG 60 G IV (03:51)
[2023-03-03 04:31] LABS: Basophils % 0.1 %; Eosinophils % 0.2 %; Hematocrit 32.8 % (42.0-52.0); Hemoglobin 10.6 g/dL (11.7-16.6); Lymphocytes % 9.1 %; Mean Corpuscular HGB Conc 32.3 g/dL (30.0-36.0); Mean Corpuscular Hemoglobin 29.4 pg (28.0-34.0); Mean Corpuscular Volume 91.1 fl (80-94); Mean Platelet Volume 10.2 fL (7.4-10.4); Monocytes # 1.2 10^3/uL (0.2-0.9); Neutrophils # 8.42 10^3/uL (1.8-7.7); Neutrophils % 79.1 %; Nucleated Red Blood Cells % 0 %; Platelet Count 247 10^3/cmm (130-400); Red Cell Distribution Width 14.1 % (12.1-15.1); White Blood Count 10.6 10^3/uL (4.0-10.0)
[2023-03-03 04:52] LABS: Alanine Aminotransferase 21 U/L (0-41); Albumin Level 3.1 g/dL (3.5-5.2); Alkaline Phosphatase 90 U/L (40-130); Anion Gap 15.2 (5-19); Aspartate Amino Transferase 26 U/L (0-40); Blood Urea Nitrogen 31 mg/dL (8-23); Carbon Dioxide 23 mmol/L (22-29); Chloride 103 mmol/L (98-107); Globulin 2.2 g/dL (1.3-4.6); Glucose 91 mg/dL (65-115); Osmolality Calculated 290 mOsm/kg (285-295); Potassium 4.2 mmol/L (3.5-5.1); Sodium 137 mmol/L (136-145); Total Bilirubin 0.4 mg/dL (0.15-1.2); Total Protein 5.3 g/dL (6.6-8.7)
[2023-03-03 04:59] LABS: Hepatitis A Antibody IgM Non-Reactive (Nonreactive); Hepatitis B Core IgM Non-Reactive (Nonreactive); Hepatitis B Surface Antigen Non-Reactive (Nonreactive); Hepatitis C Virus Antibody Non-Reactive (Nonreactive)
[2023-03-03] MEDS: sodium chloride 0.9% 1,000 ML 75 ML IV (05:35)
[2023-03-03 07:27] LABS: Glucose Point of Care 93 mg/dL (70-110)
[2023-03-03] MEDS: metoprolol tartrate 50 mg Tablet PO (08:14)
[2023-03-03] MEDS: buPROPion SR (12 HR) 150 mg Tablet PO (08:14)
[2023-03-03 11:25] LABS: Glucose Point of Care 116 mg/dL (70-110)
[2023-03-03] MEDS: enoxaparin 40 mg/0.4 mL Syringe SUBCUT (14:45)
[2023-03-03] MEDS: FUROsemide 40 mg Tablet PO (14:46)
--- NOTE | 2023-03-03 15:17 | PM.DCS ---
Discharge Providers Date of Admission: 03/01/23 19:36 Date of Discharge: March 03, 2023 Attending Provider at Admission: Khushboo Linares MD Attending Provider at Discharge: Zack Lemos MD Primary Care Provider: Racheal Moraes MD Diagnoses at Discharge Discharge Diagnosis (1) Mass of pancreas: Status: Acute (2) Weakness: Status: Acute (3) Abdominal ascites: Status: Acute (4) Fall: Status: Acute (5) Unexplained weight loss: Status: Acute (6) Abdominal distension: Status: Acute (7) H/O heart artery stent: Status: Acute (8) Diabetes mellitus, type II, insulin dependent: Status: Acute (9) Diabetes type 2, controlled: Status: Acute (10) High blood cholesterol: Status: Acute (11) Hypertension: Status: Acute (12) Acute kidney injury: Status: Acute (13) Hyperkalemia: Status: Acute (14) Dehydration: Status: Acute Reason for Visit Reason for Visit: n/v Hospital Course Hospital Course Vikram is a 73-year-old white male with history of recent weight loss in the last several months that presented with distended abdomen. He was found to have acute kidney injury. CT scan demonstrated a pancreatic mass and significant ascites. Paracentesis occurred, which did not demonstrate infection. 6 L were removed. With this he felt better, was able to ambulate. Renal function returned to normal. Tumor markers were quite high, CA 19-9 as well as CEA. Discussion with radiology occurred, and the best avenue would be endoscopic ultrasound for biopsy of his pancreatic mass. I discussed this with the patient, and outpatient follow-up with GI for this procedure in [facility] was arranged. He was instructed to call us with them if he did not hear from them by Wednesday. Keo arrange outpatient paracentesis weekly if needed here in the meantime. He will see oncology following biopsy. Medication was adjusted, and a small dose of Lasix added at discharge. He will get a BMP with his primary care provider in 1 week. Questions were answered, and he agreed with the plan. Physical Exam Narrative: General exam no distress Neck is supple Cardiovascular regular rate and rhythm Lungs clear Abdomen there is trace ascites, but not significantly distended Extremities no cyanosis, edema Urinary Catheter Management: Ayala: Cath Placed During This Visit: yes Reason for Continuing Indwelling Catheter: Other Urinary Catheter Date of Insertion: 03/01/23 Urinary Catheter Time of Insertion: 23:05 Discharge Data Studies Completed and Pending Completed Studies During Hospitalization Category Date Time Status CT abdomen pelvis w con* [id number] Stat Cat Scan 03/01/23 18:27 Completed CXRP [XR chest 1V portable [id number]] Stat Exams 03/01/23 18:27 Com[place]d w [id number] Routine Ultrasound 03/02/23 11:04 Completed Pending at discharge Category Date Time Status Body Fluid Culture & GS Routine Lab 03/02/23 13:00 Results CBC Auto Diff [Complete Blood Count w/Auto] AM LABS Lab 03/04/23 04:00 Ordered CBC Auto Diff [Complete Blood Count w/Auto] AM LABS Lab 03/05/23 04:00 Ordered CMP [Comprehensive Metabolic Panel] AM LABS Lab 03/04/23 04:00 Ordered CMP [Comprehensive Metabolic Panel] AM LABS Lab 03/05/23 04:00 Ordered Radiology Impressions Abdomen/Pelvis CT 03/01/23 18:27 IMPRESSION: 1. 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 2. 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 3. Coronary artery atherosclerotic calcifications. 4. Cirrhotic liver. 5. Hepatic steatosis. 6. Large amount of abdominal ascites. 7. Cholelithiasis suspected. 8. Diverticulosis without diverticulitis. 9. Small bilateral fat containing inguinal hernias without bowel or inflammation. 10. Left femur intertrochanteric region 13 mm sclerotic bony lesion, indeterminate, whole body nuclear medicine bone scan could further characterize this. 11. L1 and L2 probable vertebral body hemangiomas. 12. Left kidney punctate nonobstructing calyceal stone. Chest X-Ray 03/01/23 18:27 IMPRESSION: No acute findings. Paracentesis Ultrasound 03/02/23 11:04 IMPRESSION: Uncomplicated paracentesis yielding 6000 ml of peritoneal fluid. Fluid specimen collected for analysis. Previously described omental implants are not identified by ultrasound. Laboratory Results WBC 10.6 10^3/uL (4.0-10.0) H 03/03/23 03:56 RBC 3.60 10^6/uL (4.1-5.3) L 03/03/23 03:56 Hgb 10.6 g/dL (11.7-16.6) L 03/03/23 03:56 Hct 32.8 % (42.0-52.0) L 03/03/23 03:56 MCV 91.1 fl (80-94) 03/03/23 03:56 MCH 29.4 pg (28.0-34.0) 03/03/23 03:56 MCHC 32.3 g/dL (30.0-36.0) 03/03/23 03:56 RDW 14.1 % (12.1-15.1) 03/03/23 03:56 Plt Count 247 10^3/cmm (130-400) 03/03/23 03:56 MPV 10.2 fL (7.4-10.4) 03/03/23 03:56 Neut % (Auto) 79.1 % 03/03/23 03:56 Lymph % (Auto) 9.1 % 03/03/23 03:56 Merrick % (Auto) 11.0 % 03/03/23 03:56 Eos % (Auto) 0.2 % 03/03/23 03:56 Baso % (Auto) 0.1 % 03/03/23 03:56 Neut # (Auto) 8.42 10^3/uL (1.8-7.7) H 03/03/23 03:56 Lymph # (Auto) 1.0 10^3/uL (0.8-4.8) 03/03/23 03:56 Merrick # (Auto) 1.2 10^3/uL (0.2-0.9) H 03/03/23 03:56 Eos # (Auto) 0.0 10^3/uL (0.0-0.8) 03/03/23 03:56 Baso # (Auto) 0.0 10^3/uL (0.0-0.1) 03/03/23 03:56 Nucleated RBC % (auto) 0 % 03/03/23 03:56 Nucleated RBCs # 0.0 /100WBC 03/03/23 03:56 Differential Comment Yes 03/02/23 13:00 PT 14.3 Seconds (12-15.1) 03/02/23 11:43 INR 1.08 (0.8-1.2) 03/02/23 11:43 APTT 24.8 Seconds (23.9-36.7) 03/02/23 11:43 PT Patient/Normal 1:1 13.9 Seconds (12.0-15.1) 03/02/23 11:43 PTT Patient/Normal 1:1 25.3 Seconds (23.9-36.7) 03/02/23 11:43 Sodium 137 mmol/L (136-145) 03/03/23 03:56 Potassium 4.2 mmol/L (3.5-5.1) 03/03/23 03:56 Chloride 103 mmol/L (98-107) 03/03/23 03:56 Carbon Dioxide 23 mmol/L (22-29) 03/03/23 03:56 Anion Gap 15.2 (5-19) 03/03/23 03:56 BUN 31 mg/dL (8-23) H 03/03/23 03:56 Creatinine 0.7 mg/dL (0.7-1.2) 03/03/23 03:56 GFR Calculation Not Reportable 03/03/23 03:56 Glucose 91 mg/dL (65-115) 03/03/23 03:56 POC Glucose 116 mg/dL (70-110) H 03/03/23 11:22 Estimat Average Glucose 140 03/01/23 21:32 Hemoglobin A1c 6.5 % (4.0-6.0) H 03/01/23 21:32 Calculated Osmolality 290 mOsm/kg (285-295) 03/03/23 03:56 Lactic Acid 1.4 mmol/L (0.5-2.2) 03/01/23 21:32 Calcium 8.0 mg/dL (8.5-10.5) L 03/03/23 03:56 Magnesium 2.2 mg/dL (1.7-2.3) 03/02/23 04:57 Total Bilirubin 0.4 mg/dL (0.15-1.2) 03/03/23 03:56 AST 26 U/L (0-40) 03/03/23 03:56 ALT 21 U/L (0-41) 03/03/23 03:56 Alkaline Phosphatase 90 U/L (40-130) 03/03/23 03:56 Total Protein 5.3 g/dL (6.6-8.7) L 03/03/23 03:56 Albumin 3.1 g/dL (3.5-5.2) L 03/03/23 03:56 Globulin 2.2 g/dL (1.3-4.6) 03/03/23 03:56 Lipase 42 U/L (13-60) 03/01/23 18:30 Carcinoembryonic Ag 578.4 ng/mL (0.0-4.7) H 03/01/23 18:30 CA 19-9 Antigen > 51942 U/mL (0-35) H 03/01/23 18:30 Procalcitonin 0.48 ng/mL (0-0.5) 03/01/23 21:32 TSH 0.61 uIU/mL (0.27-4.20) 03/01/23 21:32 Urine Color Yellow (Yellow) 03/01/23 00:10 Urine Appearance Sl hazy (CLEAR) A 03/01/23 00:10 Urine pH 5 (5-7) 03/01/23 00:10 Ur Specific [place] 1.020 (1.005-1.030) 03/01/23 00:10 Urine Protein 1+ (Negative) H 03/01/23 00:10 Urine Glucose (UA) Norm (Normal) 03/01/23 00:10 Urine Ketones 1+ (Negative) H 03/01/23 00:10 Urine Blood 2+ (Negative) H 03/01/23 00:10 Urine Nitrate Negative (Negative) 03/01/23 00:10 Urine Bilirubin Neg (Negative) 03/01/23 00:10 Urine Urobilinogen Neg mg/dL (Negative) 03/01/23 00:10 Ur Leukocyte Esterase Negative (Negative) 03/01/23 00:10 Urine RBC 5-10 /hpf (0-2) H 03/01/23 00:10 Urine WBC None /hpf (0-5) 03/01/23 00:10 Ur Squamous Epith Cells 0-4 /hpf (0-5) H 03/01/23 00:10 Amorphous Sediment 2+ /hpf 03/01/23 00:10 Urine Bacteria 1+ /hpf (NONE) H 03/01/23 00:10 Urine Mucus 2+ /hpf 03/01/23 00:10 Fluid Color Yellow 03/02/23 13:00 Fluid Appearance Clear 03/02/23 13:00 Fluid WBC 529 /uL 03/02/23 13:00 Fluid RBC 1.000 10^3/uL 03/02/23 13:00 Fld Polynuclear WBCs # 0.019 03/02/23 13:00 Fld Polynuclear WBCs % 3.600 % 03/02/23 13:00 Fl Mononucl WBCs #(Auto) 0.510 03/02/23 13:00 Fl Mononuclear % Auto 96.400 % 03/02/23 13:00 Fld Crystal Laterality Abdominal 03/02/23 13:00 Fluid Glucose 129.0 mg/dL 03/02/23 13:00 Fluid Total Protein 3.6 g/dL 03/02/23 13:00 Fluid Albumin 2.1 g/dL 03/02/23 13:00 Hepatitis A IgM Ab Non-reactive (Nonreactive) 03/03/23 03:56 Hep Bs Antigen Non-reactive (Nonreactive) 03/03/23 03:56 Hep B Core IgM Ab Non-reactive (Nonreactive) 03/03/23 03:56 Hepatitis C Antibody Non-reactive (Nonreactive) 03/03/23 03:56 Vitals Last Vital Signs Temp 97.8 F 03/03/23 12:00 Pulse 67 03/03/23 12:00 Resp 18 03/03/23 15:01 BP 105/60 03/03/23 12:00 Pulse Ox 96 03/03/23 12:00 O2 Del Method Room Air 03/02/23 16:00 Discharge Plan Discharge Patient Disposition: Home Health Service Condition: Stable Prescriptions: New furosemide 40 mg Tablet 40 mg PO DAILY@0800 Qty: 30 0RF pantoprazole [Protonix] 40 mg tablet,delayed release (DR/EC) 40 mg PO DAILY Qty: 30 0RF Continued Glucagon Emergency Kit (human) 1 mg recon soln 1 mg SUBCUT Q20M PRN (Reason: hypoglycemia) Qty: 1 1RF Rx Instructions: until target blood sugar attained bupropion HCl 150 mg tablet sustained-release 12 hr 150 mg PO BID Qty: 180 3RF metformin 500 mg tablet extended release 24 hr See Rx Instructions .ROUTE .COMPLEX Qty: 240 2RF Dose Instruction: Take 2 tablets by mouth twice daily Rx Instructions: Take 2 tablets (1,000mg) by mouth in the am and 1 tab (500mg) bedtime (DME) OneTouch Ultra Test Strip See Rx Instructions .ROUTE .COMPLEX Qty: 300 0RF Dose Instruction: USE 1 STRIP TO CHECK GLUCOSE THREE TIMES DAILY Rx Instructions: USE 1 STRIP TO CHECK GLUCOSE THREE TIMES DAILY metoprolol tartrate 50 mg tablet 50 mg PO BID Qty: 60 3RF zinc acetate 50 mg (zinc) Capsule 50 mg PO DAILY Tylenol Ex Str Rapid Release 500 mg Tablet 1,000 mg PO Q6H PRN (Reason: Pain) Vitamin C 500 mg Tablet 500 mg PO DAILY vitamin E 268 mg (400 unit) Capsule 1 cap PO DAILY Vitamin D3 25 mcg (1,000 unit) Capsule 25 mcg PO DAILY rosuvastatin 20 mg tablet 20 mg PO DAILY Discontinued glimepiride [Amaryl] 4 mg tablet 4 mg PO DAILY Qty: 90 1RF amlodipine 10 mg tablet 10 mg PO DAILY ibuprofen 200 mg Tablet 400 mg PO Q6H PRN (Reason: Pain) Discharge Orders: Discharge Order (Routine); Ordered 03/03/23 Ordered By: Zack Lemos Other Ambulatory Orders: DME: Claudio (Order) Location: None Selected Ordered By: Juan Keita Referrals: Deshawn Vizcarra MD [Staff Physician] - 2 weeks (Following biopsy at [facility]) Racheal Moraes MD [Primary Care Provider] - 4-7 days (BMP on follow-up) Discharge Diet: Regular Discharge Activity: Increase activity as tolerated Patient Instructions: Opioid Safety Activity Restrictions/Additional Instructions: You have been referred to [facility] for your mass in the pancreas. You may require an outpatient paracentesis next week. A follow up was scheduled. Take all medicine as prescribed Return for any concerns. Discharge Attestations Time Spent in Discharge Care*: greater than 30 min Quality Metrics Clinical Quality Measures [ No reported AMI, CVA or VTE this stay] Coding Level of Care Code 61028 Diagnoses Mass of pancreas K86.89 Weakness R53.1 Abdominal ascites R18.8 Fall W19.XXXA Unexplained weight loss R63.4 Abdominal distension R14.0 H/O heart artery stent Z95.5 Diabetes mellitus, type II, insulin dependent E11.9; Z79.4 Diabetes type 2, controlled E11.9 High blood cholesterol E78.00 Hypertension I10 Acute kidney injury N17.9 Hyperkalemia E87.5 Dehydration E86.0 Time Spent (min) 40
== END 2023-03-03 17:09 | disposition home or self-care (01) | DRG 439 ==
LOC: ER 20:14 → MEDSURG 21:42
PROVIDERS: Internal Medicine; Admitting Provider Internal Medicine; Emergency Provider Emergency Medicine; PCP Family Medicine; Visit Provider Internal Medicine
DX: K86.9 Disease of pancreas, unspecified (principal); E87.1 Hypo-osmolality and hyponatremia; N17.9 Acute kidney failure, unspecified; R18.8 Other ascites; R97.8 Other abnormal tumor markers; K74.60 Unspecified cirrhosis of liver; R97.0 Elevated carcinoembryonic antigen [CEA]; Z79.84 Long term (current) use of oral hypoglycemic drugs; E11.9 Type 2 diabetes mellitus without complications; I25.10 Atherosclerotic heart disease of native coronary artery without angina pectoris; Z95.5 Presence of coronary angioplasty implant and graft; H40.9 Unspecified glaucoma; E78.5 Hyperlipidemia, unspecified; I10 Essential (primary) hypertension; Z80.0 Family history of malignant neoplasm of digestive organs; Z87.891 Personal history of nicotine dependence; K76.0 Fatty (change of) liver, not elsewhere classified; E86.0 Dehydration
CPT/HCPCS: 36415; 36416; 49083; 51702; 71045; 74177; 80048; 80053; 80074; 80503; 81001; 82042; 82378; 82945; 82962; 83036; 83605; 83690; 83735; 84145; 84157; 84443; 85025; 85610; 85611; 85730; 86301; 87070; 87075; 87205; 89050; 93005; 96361; 96372; 96374; 96375; 97110; 97116; 97161; 97167; 97530; 97535; 99285; C9113; G0378; J1644; J1650; J1815; J2270; J7030; P9046; Q9967

== ENCOUNTER → 2023-03-09 17:07 | Outpatient (BNVA) | payer MEDICARE, SELFPAY | PROVIDERS: PCP Family Medicine; Visit Provider Family Medicine | DX: R18.8 Other ascites (principal) | CPT/HCPCS: 80048 ==

== ENCOUNTER 2023-03-10 11:36 | Day surgery (SDC) | payer MEDICARE, SELFPAY ==
[2023-03-08 12:16] VITALS: BMI 25.9
--- NOTE | 2023-03-10 11:43 | US_ITS ---
WS: [id number] ULTRASOUND-GUIDED PARACENTESIS CLINICAL INFORMATION: ascites COMPARISON: None. Procedure Informed consent: The risks, benefits, and alternatives of the procedure were discussed with the isauro ent. Verbal and written consent was obtained. Timeout: A timeout was performed to confirm the correct patient, procedure, and site. Preparation: A suitable skin site was identified. The patient was prepped and draped in usual sterile fashion. Lidocaine 1% was used for local anesthesia. Catheter: 4 [place] One-step Yueh catheter. Side: LEFT Lower quadrant. Fluid Volume: 8000 ml Color: Clear yellow DISPOSITION: Discarded safely. Complications: None. Patient disposition: Discharged from the department in stable condition. US/US paracentesis abd w [id number] IMPRESSION: Uncomplicated ultrasound-guided paracentesis. Removal of 8000 cc.
[2023-03-10 11:48] VITALS: BP 124/80; PULSE 76; RESP 18; TEMP 36.2; O2SAT 97
[2023-03-10 14:00] VITALS: BP 98/66; PULSE 73; RESP 16; O2SAT 98
== END 2023-03-10 14:15 | disposition home or self-care (01) ==
PROVIDERS: Radiology Neuroradiology; PCP Family Medicine; Visit Provider Internal Medicine
PROC: (CPT 49082; principal; 2023-03-10 12:00)
DX: R18.8 Other ascites (principal)
CPT/HCPCS: 49083

== ENCOUNTER 2023-03-12 17:38 | Emergency (ER) | payer MEDICARE, SELFPAY ==
[2023-03-12 17:43] VITALS: BP 90/61; PULSE 80; RESP 15; TEMP 36.7; O2SAT 97
[2023-03-12 18:33] VITALS: BP 93/65; PULSE 74; RESP 16; O2SAT 93
[2023-03-12 19:25] LABS: Basophils % 0.1 %; Eosinophils % 0.1 %; Hematocrit 40.3 % (42.0-52.0); Hemoglobin 13.3 g/dL (11.7-16.6); Lymphocytes # 0.9 10^3/uL (0.8-4.8); Lymphocytes % 6.6 %; Mean Corpuscular Hemoglobin 29.2 pg (28.0-34.0); Mean Corpuscular Volume 88.6 fl (80-94); Mean Platelet Volume 10.6 fL (7.4-10.4); Monocytes # 0.9 10^3/uL (0.2-0.9); Monocytes % 6.5 %; Neutrophils # 12.28 10^3/uL (1.8-7.7); Neutrophils % 85.8 %; Nucleated Red Blood Cells % 0 %; Platelet Count 321 10^3/cmm (130-400); Red Blood Count 4.55 10^6/uL (4.1-5.3); White Blood Count 14.3 10^3/uL (4.0-10.0)
[2023-03-12 19:29] LABS: Alanine Aminotransferase 19 U/L (0-41); Albumin Level 3.2 g/dL (3.5-5.2); Alkaline Phosphatase 117 U/L (40-130); Blood Urea Nitrogen 33 mg/dL (8-23); Calcium 8.3 mg/dL (8.5-10.5); Carbon Dioxide 22 mmol/L (22-29); Chloride 95 mmol/L (98-107); Globulin 2.9 g/dL (1.3-4.6); Glucose 207 mg/dL (65-115); Osmolality Calculated 285 mOsm/kg (285-295); Sodium 131 mmol/L (136-145); Total Bilirubin 0.4 mg/dL (0.15-1.2); Total Protein 6.1 g/dL (6.6-8.7)
[2023-03-12 19:37] LABS: Anion Gap 18.9 (5-19); Aspartate Amino Transferase 23 U/L (0-40); Potassium 4.9 mmol/L (3.5-5.1)
[2023-03-12 19:38] LABS: Blood Urine 2+ (Negative); Glucose Urine UA Norm (Normal); Ketones Urine 1+ (Negative); Protein Urine 1+ (Negative); Urine Appearance Cloudy (CLEAR); Urine Color Yellow (Yellow); pH Urine 5 (5-7)
[2023-03-12 19:39] LABS: Add Urine Microscopic? YES; Bilirubin Urine Neg (Negative); Leukocyte Esterase Urine 1+ (Negative); Nitrate Urine Negative (Negative); Urobilinogen Urine Norm (Negative)
[2023-03-12 19:40] LABS: Mucus Urine 2+ /hpf; Squamous Epithelial Cell Urine 0-4 /hpf (0-5); WBC Urine 0-4 /hpf (0-5)
[2023-03-12 19:41] LABS: Add Urine Culture? No; Amorphous Sediment Urine 2+ /hpf; Fine Granular Casts Urine 0-4 /lpf
[2023-03-12 19:46] VITALS: BP 106/75; PULSE 75; RESP 16; O2SAT 100
--- NOTE | 2023-03-12 20:07 | ED_ITS ---
HPI - Weakness General: Chief complaint: Weakness Stated complaint: BP Low Time Seen by Provider: 03/12/23 18:34 History of Present Illness: 73-year-old male with complex medical history including liver cirrhosis and frequent anxieties was brought into emergency room today by due to concern of generalized weakness and hypotension. further reveals that patient had parenthesis done 2 days ago and it took her about 3 L of fluid. Today, while the patient was at home with visiting nurse did not know the patient had a low blood pressure. Upon present emergency room patient blood pressure did improve and patient has any symptoms at this time. Denies any abdominal pain, chest pain, headache, blurry vision or change in vision. reviewed the patient had pancreatic biopsy done yesterday in . Currently waiting for the results of the biopsy. Associated symptoms: Denies melena, nausea or vomiting Review of Systems General: Reports: 10 or more systems reviewed and unremarkable except in HPI and below Resp: Denies: dyspnea, productive cough or non-productive cough GI: Denies: abdominal pain, nausea, vomiting, hematemesis, diarrhea, bloating, excessive flatus, fecal incontinence, rectal swelling, rectal itching, hematochezia, melena or mucus in stool Skin/Breast: Denies: rash, pruritus, erythema, photosensitivity, skin pain, skin tenderness, skin swelling, sores, jaundice, surgical incision or breast tenderness Psych: Denies: mood swings, panic attacks, change in appetite or irritability [facility] ED PFSH: Medical History Diabetes type 2, controlled High blood cholesterol Hypertension Surgical History H/O heart artery stent Family History Mother Cancer colon Sister Cancer Diabetes Brother Cancer Brother Dementia Grandmother Dementia Father Clotting disorder Other Hyperlipidemia Hypertension Denies family history of CAD (coronary artery disease) Psychiatric illness Chronic kidney disease (CKD) Suicide Anesthesia complication Bleeding disorder Family history of premature coronary artery disease Lung disease Stroke Social History Smoking and tobacco status: former smoker Alcohol intake: former Substance/Drug Use: never Household members: significant other Marital status: Life Partner service: No Current occupational status: retired Current gender identity: Male Physical Exam HENMT: COMMON NORMALS: normocephalic, atraumatic and hearing grossly normal bilaterally HEAD & SCALP: normocephalic and atraumatic Neck/C-Spine: COMMON NORMALS: full ROM; negative for no lymphadenopathy, negative for no meningeal signs and negative for no JVD Chest: COMMONS NORMALS: normal inspection of the chest and normal inspection of the breasts Breast/axilla inspection: Yes normal inspection of the breasts Cardio: COMMON NORMALS: negative for no JVD GI: INSPECTION: Yes abdominal distension Neuro: MENINGEAL SIGNS: No no meningeal signs Course Vital Signs: Vital signs: Vital Signs Temperature 98.0 F 03/12/23 17:43 Pulse Rate 75 03/12/23 19:46 Respiratory Rate 16 03/12/23 19:46 Blood Pressure 106/75 03/12/23 19:46 Pulse Oximetry 100 03/12/23 19:46 Oxygen Delivery Me thod Room Air 03/12/23 19:46 MDM - Weakness Medical Decision Making Patient was monitored here for several hours. I discussed the lab findings after reviewing the lab with the patient and . His provided most of the history. They were reassured and close follow-up with PCP recommended next few days. Differential Diagnosis Likely anemia, hypoglycemia, hypothyroidism, rhabdomyolysis, sepsis and dehydration Lab Data 03/12/23 18:44 03/12/23 18:44 Laboratory Results WBC 14.3 10^3/uL (4.0-10.0) H 03/12/23 18:44 RBC 4.55 10^6/uL (4.1-5.3) 03/12/23 18:44 Hgb 13.3 g/dL (11.7-16.6) 03/12/23 18:44 Hct 40.3 % (42.0-52.0) L 03/12/23 18:44 MCV 88.6 fl (80-94) 03/12/23 18:44 MCH 29.2 pg (28.0-34.0) 03/12/23 18:44 MCHC 33.0 g/dL (30.0-36.0) 03/12/23 18:44 RDW 14.0 % (12.1-15.1) 03/12/23 18:44 Plt Count 321 10^3/cmm (130-400) 03/12/23 18:44 MPV 10.6 fL (7.4-10.4) H 03/12/23 18:44 Neut % (Auto) 85.8 % 03/12/23 18:44 Lymph % (Auto) 6.6 % 03/12/23 18:44 [place] % (Auto) 6.5 % 03/12/23 18:44 Eos % (Auto) 0.1 % 03/12/23 18:44 Baso % (Auto) 0.1 % 03/12/23 18:44 Neut # (Auto) 12.28 10^3/uL (1.8-7.7) H 03/12/23 18:44 Lymph # (Auto) 0.9 10^3/uL (0.8-4.8) 03/12/23 18:44 [place] # (Auto) 0.9 10^3/uL (0.2-0.9) 03/12/23 18:44 Eos # (Auto) 0.0 10^3/uL (0.0-0.8) 03/12/23 18:44 Baso # (Auto) 0.0 10^3/uL (0.0-0.1) 03/12/23 18:44 Nucleated RBC % (auto) 0 % 03/12/23 18:44 Nucleated RBCs # 0.0 /100WBC 03/12/23 18:44 Sodium 131 mmol/L (136-145) L 03/12/23 18:44 Potassium 4.9 mmol/L (3.5-5.1) 03/12/23 18:44 Chloride 95 mmol/L (98-107) L 03/12/23 18:44 Carbon Dioxide 22 mmol/L (22-29) 03/12/23 18:44 Anion Gap 18.9 (5-19) 03/12/23 18:44 BUN 33 mg/dL (8-23) H 03/12/23 18:44 Creatinine 1.0 mg/dL (0.7-1.2) 03/12/23 18:44 GFR Calculation Not Reportable 03/12/23 18:44 Glucose 207 mg/dL (65-115) H 03/12/23 18:44 Calculated Osmolality 285 mOsm/kg (285-295) 03/12/23 18:44 Calcium 8.3 mg/dL (8.5-10.5) L 03/12/23 18:44 Total Bilirubin 0.4 mg/dL (0.15-1.2) 03/12/23 18:44 AST 23 U/L (0-40) 03/12/23 18:44 ALT 19 U/L (0-41) 03/12/23 18:44 Alkaline Phosphatase 117 U/L (40-130) 03/12/23 18:44 Total Protein 6.1 g/dL (6.6-8.7) L 03/12/23 18:44 Albumin 3.2 g/dL (3.5-5.2) L 03/12/23 18:44 Globulin 2.9 g/dL (1.3-4.6) 03/12/23 18:44 Urine Color Yellow (Yellow) 03/12/23 19:11 Urine Appearance Cloudy (CLEAR) A 03/12/23 19:11 Urine pH 5 (5-7) 03/12/23 19:11 Ur Specific [place] 1.020 (1.005-1.030) 03/12/23 19:11 Urine Protein 1+ (Negative) H 03/12/23 19:11 Urine Glucose (UA) Norm (Normal) 03/12/23 19:11 Urine Ketones 1+ (Negative) H 03/12/23 19:11 Urine Blood 2+ (Negative) H 03/12/23 19:11 Urine Nitrate Negative (Negative) 03/12/23 19:11 Urine Bilirubin Neg (Negative) 03/12/23 19:11 Urine Urobilinogen Norm mg/dL (Negative) 03/12/23 19:11 Ur Leukocyte Esterase 1+ (Negative) H 03/12/23 19:11 Urine RBC 5-10 /hpf (0-2) H 03/12/23 19:11 Urine WBC 0-4 /hpf (0-5) H 03/12/23 19:11 Ur Squamous Epith Cells 0-4 /hpf (0-5) H 03/12/23 19:11 Amorphous Sediment 2+ /hpf 03/12/23 19:11 Urine Bacteria Not Reportable 03/12/23 19:11 Hyaline Casts 5-10 /lpf H 03/12/23 19:11 Fine Granular Casts 0-4 /lpf H 03/12/23 19:11 Urine Mucus 2+ /hpf 03/12/23 19:11 Discharge Plan Discharge Patient Disposition: Home Clinical Impression: Weakness, Ascites Condition: Stable Prescriptions: No Action Glucagon Emergency Kit (human) 1 mg recon soln 1 mg SUBCUT Q20M PRN (Reason: hypoglycemia) Qty: 1 1RF Rx Instructions: until target blood sugar attained metformin 500 mg tablet extended release 24 hr See Rx Instructions .ROUTE .COMPLEX Qty: 240 2RF Dose Instruction: Take 2 tablets by mouth twice daily Rx Instructions: Take 2 tablets (1,000mg) by mouth in the am and 1 tab (500mg) bedtime (DME) OneTouch Ultra Test Strip See Rx Instructions .ROUTE .COMPLEX Qty: 300 0RF Dose Instruction: USE 1 STRIP TO CHECK GLUCOSE THREE TIMES DAILY Rx Instructions: USE 1 STRIP TO CHECK GLUCOSE THREE TIMES DAILY metoprolol tartrate 50 mg tablet 50 mg PO BID Qty: 60 3RF acetaminophen 500 mg Tablet 1,000 mg PO Q6H PRN (Reason: Pain) rosuvastatin 20 mg tablet 20 mg PO DAILY furosemide 40 mg Tablet 40 mg PO DAILY@0800 Qty: 30 0RF pantoprazole [Protonix] 40 mg tablet,delayed release (DR/EC) 40 mg PO DAILY Qty: 30 0RF oxycodone 5 mg tablet 5 mg PO Q6H PRN (Reason: pain) Qty: 20 0RF bupropion HCl [Wellbutrin SR] 150 mg tablet sustained-release 12 hr 150 mg PO BID Stool Softener 1 tab PO DAILY Discharge Orders: Discharge ED (Routine); Ordered 03/12/23 Ordered By: Neha Fitzpatrick Referrals: Racheal Moraes MD [Primary Care Provider] - Discharge Diet: Regular Discharge Activity: Resume usual activity Patient Instructions: Opioid Safety, Pain Management Coding Level of Care Code ED 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
--- NOTE | 2023-03-12 23:43 | ED_ITS ---
HPI - Weakness General: Chief complaint: Weakness Stated complaint: BP Low Time Seen by Provider: 03/12/23 18:34 History of Present Illness: 73-year-old male with complex medical history including liver cirrhosis and hypertension presents emergency room with due to low blood pressure at home. According to the , patient had a visiting nurse that noticed patient blood pressure to be 110/80. The nurse was concerned and told patient to report to the emergency room. Upon present emergency room patient is awake and alert. In no acute distress. Patient has any chest pain, fever, chills, diarrhea, bloody stool or dark stool. No dysuria, hematuria urine frequency. PFS ED PFSH: Medical History Diabetes type 2, controlled High blood cholesterol Hypertension Surgical History H/O heart artery stent Family History Mother Cancer colon Sister Cancer Diabetes Brother Cancer Brother Dementia Grandmother Dementia Father Clotting disorder Other Hyperlipidemia Hypertension Denies family history of CAD (coronary artery disease) Psychiatric illness Chronic kidney disease (CKD) Suicide Anesthesia complication Bleeding disorder Family history of premature coronary artery disease Lung disease Stroke Social History Smoking and tobacco status: former smoker Alcohol intake: former Substance/Drug Use: never Household members: significant other Marital status: Life Partner service: No Current occupational status: retired Current gender identity: Male Physical Exam Const: COMMON NORMALS: patient oriented x3 Chest: COMMONS NORMALS: normal inspection of the chest GI: INSPECTION: Yes Fluid wave present, Yes Localized GI swelling present, No Laceration(s) present (GI) and No GI erythema present AUSCULTATION: Yes normoactive bowel sounds PERCUSSION: dullness to percussion and Fluid wave present RECTAL EXAM: No Laceration(s) present (GI) Extremity: COMMON NORMALS: normal to inspection, full ROM, capillary refill normal and no joint enlargement Neuro: COMMON NORMALS: patient oriented x3 Skin: COMMON NORMALS: no rashes or lesions noted and turgor normal GENERAL SKIN EXAM: no rashes or lesions noted and turgor normal Course Vital Signs: Vital signs: Vital Signs Temperature 98.0 F 03/12/23 17:43 Pulse Rate 75 03/12/23 19:46 Respiratory Rate 16 03/12/23 19:46 Blood Pressure 106/75 03/12/23 19:46 Pulse Oximetry 100 03/12/23 19:46 Oxygen Delivery Me thod Room Air 03/12/23 19:46 MDM - Weakness Medical Decision Making Patient was monitored in ER for several hours. Discussed the lab findings with the patient and . The also provided some of the history. Patient was reassured. He was told to hold his blood pressure medication for the next few days and keep a record of his pressure. Differential Diagnosis Likely anemia, hypoglycemia, hypothyroidism, sepsis and dehydration Medical Records I reviewed the patient's medical records. Lab Data 03/12/23 18:44 03/12/23 18:44 Laboratory Results WBC 14.3 10^3/uL (4.0-10.0) H 03/12/23 18:44 RBC 4.55 10^6/uL (4.1-5.3) 03/12/23 18:44 Hgb 13.3 g/dL (11.7-16.6) 03/12/23 18:44 Hct 40.3 % (42.0-52.0) L 03/12/23 18:44 MCV 88.6 fl (80-94) 03/12/23 18:44 MCH 29.2 pg (28.0-34.0) 03/12/23 18:44 MCHC 33.0 g/dL (30.0-36.0) 03/12/23 18:44 RDW 14.0 % (12.1-15.1) 03/12/23 18:44 Plt Count 321 10^3/cmm (130-400) 03/12/23 18:44 MPV 10.6 fL (7.4-10.4) H 03/12/23 18:44 Neut % (Auto) 85.8 % 03/12/23 18:44 Lymph % (Auto) 6.6 % 03/12/23 18:44 [place] % (Auto) 6.5 % 03/12/23 18:44 Eos % (Auto) 0.1 % 03/12/23 18:44 Baso % (Auto) 0.1 % 03/12/23 18:44 Neut # (Auto) 12.28 10^3/uL (1.8-7.7) H 03/12/23 18:44 Lymph # (Auto) 0.9 10^3/uL (0.8-4.8) 03/12/23 18:44 [place] # (Auto) 0.9 10^3/uL (0.2-0.9) 03/12/23 18:44 Eos # (Auto) 0.0 10^3/uL (0.0-0.8) 03/12/23 18:44 Baso # (Auto) 0.0 10^3/uL (0.0-0.1) 03/12/23 18:44 Nucleated RBC % (auto) 0 % 03/12/23 18:44 Nucleated RBCs # 0.0 /100WBC 03/12/23 18:44 Sodium 131 mmol/L (136-145) L 03/12/23 18:44 Potassium 4.9 mmol/L (3.5-5.1) 03/12/23 18:44 Chloride 95 mmol/L (98-107) L 03/12/23 18:44 Carbon Dioxide 22 mmol/L (22-29) 03/12/23 18:44 Anion Gap 18.9 (5-19) 03/12/23 18:44 BUN 33 mg/dL (8-23) H 03/12/23 18:44 Creatinine 1.0 mg/dL (0.7-1.2) 03/12/23 18:44 GFR Calculation Not Reportable 03/12/23 18:44 Glucose 207 mg/dL (65-115) H 03/12/23 18:44 Calculated Osmolality 285 mOsm/kg (285-295) 03/12/23 18:44 Calcium 8.3 mg/dL (8.5-10.5) L 03/12/23 18:44 Total Bilirubin 0.4 mg/dL (0.15-1.2) 03/12/23 18:44 AST 23 U/L (0-40) 03/12/23 18:44 ALT 19 U/L (0-41) 03/12/23 18:44 Alkaline Phosphatase 117 U/L (40-130) 03/12/23 18:44 Total Protein 6.1 g/dL (6.6-8.7) L 03/12/23 18:44 Albumin 3.2 g/dL (3.5-5.2) L 03/12/23 18:44 Globulin 2.9 g/dL (1.3-4.6) 03/12/23 18:44 Urine Color Yellow (Yellow) 03/12/23 19:11 Urine Appearance Cloudy (CLEAR) A 03/12/23 19:11 Urine pH 5 (5-7) 03/12/23 19:11 Ur Specific [place] 1.020 (1.005-1.030) 03/12/23 19:11 Urine Protein 1+ (Negative) H 03/12/23 19:11 Urine Glucose (UA) Norm (Normal) 03/12/23 19:11 Urine Ketones 1+ (Negative) H 03/12/23 19:11 Urine Blood 2+ (Negative) H 03/12/23 19:11 Urine Nitrate Negative (Negative) 03/12/23 19:11 Urine Bilirubin Neg (Negative) 03/12/23 19:11 Urine Urobilinogen Norm mg/dL (Negative) 03/12/23 19:11 Ur Leukocyte Esterase 1+ (Negative) H 03/12/23 19:11 Urine RBC 5-10 /hpf (0-2) H 03/12/23 19:11 Urine WBC 0-4 /hpf (0-5) H 03/12/23 19:11 Ur Squamous Epith Cells 0-4 /hpf (0-5) H 03/12/23 19:11 Amorphous Sediment 2+ /hpf 03/12/23 19:11 Urine Bacteria Not Reportable 03/12/23 19:11 Hyaline Casts 5-10 /lpf H 03/12/23 19:11 Fine Granular Casts 0-4 /lpf H 03/12/23 19:11 Urine Mucus 2+ /hpf 03/12/23 19:11 Discharge Plan Discharge Patient Disposition: Home Clinical Impression: Weakness, Ascites Condition: Stable Prescriptions: No Action Glucagon Emergency Kit (human) 1 mg recon soln 1 mg SUBCUT Q20M PRN (Reason: hypoglycemia) Qty: 1 1RF Rx Instructions: until target blood sugar attained metformin 500 mg tablet extended release 24 hr See Rx Instructions .ROUTE .COMPLEX Qty: 240 2RF Dose Instruction: Take 2 tablets by mouth twice daily Rx Instructions: Take 2 tablets (1,000mg) by mouth in the am and 1 tab (500mg) bedtime (DME) OneTouch Ultra Test Strip See Rx Instructions .ROUTE .COMPLEX Qty: 300 0RF Dose Instruction: USE 1 STRIP TO CHECK GLUCOSE THREE TIMES DAILY Rx Instructions: USE 1 STRIP TO CHECK GLUCOSE THREE TIMES DAILY metoprolol tartrate 50 mg tablet 50 mg PO BID Qty: 60 3RF acetaminophen 500 mg Tablet 1,000 mg PO Q6H PRN (Reason: Pain) rosuvastatin 20 mg tablet 20 mg PO DAILY furosemide 40 mg Tablet 40 mg PO DAILY@0800 Qty: 30 0RF pantoprazole [Protonix] 40 mg tablet,delayed release (DR/EC) 40 mg PO DAILY Qty: 30 0RF oxycodone 5 mg tablet 5 mg PO Q6H PRN (Reason: pain) Qty: 20 0RF bupropion HCl [Wellbutrin SR] 150 mg tablet sustained-release 12 hr 150 mg PO BID Stool Softener 1 tab PO DAILY Discharge Orders: Discharge ED (Routine); Ordered 03/12/23 Ordered By: Neha Fitzpatrick Referrals: Racheal Moraes MD [Primary Care Provider] - Discharge Diet: Regular Discharge Activity: Resume usual activity Patient Instructions: Opioid Safety, Pain Management Coding Level of Care Code ED [employer] for [employer]
== END 2023-03-12 20:46 | disposition home or self-care (01) ==
PROVIDERS: Emergency Provider Family Medicine; PCP Family Medicine
DX: R53.1 Weakness (principal); R18.8 Other ascites; Z79.84 Long term (current) use of oral hypoglycemic drugs; Z87.891 Personal history of nicotine dependence; E11.9 Type 2 diabetes mellitus without complications; I10 Essential (primary) hypertension
CPT/HCPCS: 80053; 81001; 85025; 99283

== ENCOUNTER 2023-03-19 09:51 | Inpatient (IN) | payer MEDICARE, SELFPAY ==
[2023-03-19] VITALS (32 sets, daily range): BP systolic 77–181; BP diastolic 51–109; PULSE 87–129; RESP 12–26; TEMP 36–37.2; O2SAT 84–98; BMI 25.7
--- NOTE | 2023-03-19 10:01 | ECG_ITS ---
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 Measurements Intervals [place] Rate: 96 P: 0 NE: 0 QRS: -67 QRSD: 119 T: 107 QT: 359 QTc: 454 Interpretive Statements ATRIAL FIBRILLATION LEFT AXIS DEVIATION [QRS AXIS < -30] ANTEROSEPTAL MYOCARDIAL INFARCTION , PROBABLY OLD [40+ ms Q WAVE IN V1-V4] Compared to ECG 03/01/2023 18:53:30 Left-axis deviation now present Ectopic atrial rhythm no longer present Left anterior fascicular block no longer present T-wave abnormality no longer present Possible ischemia no longer present Myocardial infarct finding still present Electronically Signed On 03-19-2023 10:29:41 CDT by Paulina Crowe M.D. [id number]
--- NOTE | 2023-03-19 10:02 | XRR_ITS ---
PROCEDURE INFORMATION: Exam: XR Chest Exam date and time: 03/19/2023 10:07 AM Age: 73 years old Clinical indication: Cough with hemorrhage; Additional info: Dyspnea/cough TECHNIQUE: Imaging protocol: Radiologic exam of the chest. Views: 1 view. COMPARISON: CR (CHEST, ) 03/01/2023 6:48 PM FINDINGS: Lungs: Unremarkable. No consolidation. Pleural spaces: Unremarkable. No pleural effusion. No pneumothorax. Heart/Mediastinum: Unremarkable. No cardiomegaly. Bones/joints: Unremarkable. XR/XR chest 1V portable 12090 IMPRESSION: No acute findings.
[2023-03-19] MEDS: dilTIAZem 5 mg/mL SDV 5 mL 10 MG IVP (10:08)
[2023-03-19 10:13] LABS: Basophils % 0.2 %; Hematocrit 41.9 % (42.0-52.0); Hemoglobin 13.7 g/dL (11.7-16.6); Lymphocytes # 0.5 10^3/uL (0.8-4.8); Lymphocytes % 2.6 %; Mean Corpuscular HGB Conc 32.7 g/dL (30.0-36.0); Mean Corpuscular Hemoglobin 28.7 pg (28.0-34.0); Mean Corpuscular Volume 87.8 fl (80-94); Mean Platelet Volume 10.8 fL (7.4-10.4); Monocytes # 1.3 10^3/uL (0.2-0.9); Monocytes % 6.6 %; Neutrophils # 17.11 10^3/uL (1.8-7.7); Nucleated Red Blood Cells % 0 %; Platelet Count 305 10^3/cmm (130-400); Red Blood Count 4.77 10^6/uL (4.1-5.3); Red Cell Distribution Width 13.8 % (12.1-15.1)
[2023-03-19] MEDS: dilTIAZem 100 MG in sodium chloride 0.9% (add-van) 100 ML IV (10:13)
--- NOTE | 2023-03-19 10:17 | PC.NURSE ---
ED PHYSICIAN INFORMED OF PT BP 87/64. ED PHYSICIAN GAVE VERBAL INSTRUCTION TO ADMINISTER 10MG CRIZEM IVP AND START PT ON CARDIZEM DRIP.
--- NOTE | 2023-03-19 10:20 | PC.NURSE ---
CARDIZEM DRIP TITRATED TO 2.5MG PER HOUR PER ED PHYSICIAN.
--- NOTE | 2023-03-19 10:25 | W.ED.WEAKNES ---
HPI - Weakness General: Chief complaint: Weakness Stated complaint: fall, hypertension Time Seen by Provider: 03/19/23 09:57 Source: patient Mode of arrival: EMS History of Present Illness: 73-year-old male presents to the emergency room with complaints of a fall at home generally not feeling well multiple falls over the last 2 weeks. EMS found him to be tachycardic and hypotensive on their arrival. He was recently hospitalized and found to have a pancreatic mass he is in the process of having his worked up but has not yet had it biopsied to confirm the nature of it. It is presumed at this point to likely be cancer. CT done earlier this month showed omental caking and cirrhosis of the liver. There is no mention of metastatic appearing lesions to the liver. He has had several paracentesis recently to relieve abdominal distention. He has no known history of atrial fibrillation he is not on any anticoagulants. MD Complaint: generalized weakness Onset (ago): day(s) Duration: constant Location: generalized Relieving factors: none Exacerbating factors: none Associated symptoms: Reports myalgias and nausea; Denies chest pain, chills, confusion, melena, decreased appetite, diaphoresis, dysuria, easy bruising, fever(s), headache(s), rash, short of breath, syncope or vomiting Review of Systems Const: Reports: fatigue and malaise; Denies: fever(s), chills or diaphoresis ENMT: Denies: throat pain, ear or mastoid pain, nasal discharge or nasal congestion Card: Reports: palpitations, irregular heart rhythm, edema and swelling of feet/ankles; Denies: chest pain or syncope Resp: Reports: dyspnea; Denies: productive cough or non-productive cough GI: Reports: abdominal pain and nausea; Denies: vomiting or melena : Denies: dysuria, urinary frequency or urinary urgency Skin/Breast: Denies: rash or pruritus Neuro: Denies: headache(s) or confusion Remberto/Lymph: Denies: easy bruising PFSH ED PFSH: Medical History Abdominal ascites Coronary artery disease Diabetes mellitus, type II, insulin dependent Diabetes type 2, controlled High blood cholesterol Hypertension Mass of pancreas Family reports biopsy in [place] confirmed malignancy Surgical History H/O heart artery stent Family History Mother Cancer colon Sister Cancer Diabetes Brother Cancer Brother Dementia Grandmother Dementia Father Clotting disorder Other Hyperlipidemia Hypertension Denies family history of CAD (coronary artery disease) Psychiatric illness Chronic kidney disease (CKD) Suicide Anesthesia complication Bleeding disorder Family history of premature coronary artery disease Lung disease Stroke Social History Smoking and tobacco status: former smoker Alcohol intake: former Substance/Drug Use: never Household members: significant other Marital status: Life Partner service: No Current occupational status: retired Current gender identity: Male Physical Exam Const: GENERAL APPEARANCE: cooperative ORIENTATION/CONSCIOUSNESS: Yes awake, Yes oriented to person, Yes oriented to place and Yes oriented to time HENMT: COMMON NORMALS: normocephalic, atraumatic and hearing grossly normal bilaterally HEAD & SCALP: normocephalic and atraumatic Resp: COMMON NORMALS: normal respiratory effort, No retractions, No use of accessory muscles and clear to auscultation bilaterally AUSCULTATION: clear to auscultation bilaterally Cardio: COMMON NORMALS: No murmurs present (Cardio) RATE: tachycardic RHYTHM: abnormal rhythm irregularly irregular GI: COMMON NORMALS: Soft to palpation INSPECTION: Yes abdominal distension AUSCULTATION: Yes normoactive bowel sounds PALPATION: Yes Soft to palpation, No Tenderness to palpation present (GI), No Guarding due to palpation present (GI) and Yes Hepatomegaly present : COMMON NORMALS: Yes no CVA tenderness BLADDER/KIDNEY EXAM: Yes no CVA tenderness Back/Pelvis: COMMON NORMALS: no CVA tenderness Extremity: COMMON NORMALS: normal to inspection, capillary refill normal, no clubbing, cyanosis or edema, no calf tenderness and no pedal edema Neuro: SENSORIUM/ORIENTATION: Yes oriented to person, Yes oriented to place and Yes oriented to time Skin: COMMON NORMALS: no rashes or lesions noted GENERAL SKIN EXAM: no rashes or lesions noted Course Vital Signs: Vital signs: Vital Signs Temperature 97.6 F 03/19/23 09:53 Pulse Rate 106 H 03/19/23 13:08 Respiratory Rate 19 H 03/19/23 12:00 Blood Pressure 99/66 03/19/23 12:00 Pulse Oximetry 95 03/19/23 13:08 Oxygen Delivery Me thod Nasal Cannula 03/19/23 13:08 Oxygen Flow Rate 3 03/19/23 13:08 MDM - Weakness Medical Decision Making A-fib with RVR acute kidney injury hyperkalemia. We did track down the records until he had an appointment on Wednesday in 3 days with oncology he did have the biopsy done and confirmed pancreatic cancer he supposed to see oncology to discuss possible treatment options. Given his overall condition now he is on any condition to undergo any treatments. We will admit he is currently on Cardizem drip with adequate rate control. Medical Records I reviewed the patient's medical records. Lab Data I reviewed the patient's lab results. 03/19/23 09:58 03/19/23 13:26 Radiology Impressions Chest X-Ray 03/19/23 10:02 IMPRESSION: No acute findings. Abdomen/Pelvis CT 03/19/23 11:16 IMPRESSION: 1. Small LEFT pleural effusion. 2. Diffuse omental carcinomatosis with omental caking similar to the prior examination. 3. Predominantly gaseous distention of the transverse colon with mild fecal retention in the LEFT colon. Findings likely due to adynamic ileus. Sigmoid stricture not entirely excluded. Narrowing of the mid sigmoid colon with surrounding carcinomatosis appears unchanged. 4. No hydronephrosis in either kidney. 5. Small amount of perihepatic and perisplenic ascites. 6. Previously described cystic mass in the body and tail the pancreas better visualized on recent contrast-enhanced CT. Laboratory Results WBC 19.0 10^3/uL (4.0-10.0) H 03/19/23 09:58 RBC 4.77 10^6/uL (4.1-5.3) 03/19/23 09:58 Hgb 13.7 g/dL (11.7-16.6) 03/19/23 09:58 Hct 41.9 % (42.0-52.0) L 03/19/23 09:58 MCV 87.8 fl (80-94) 03/19/23 09:58 MCH 28.7 pg (28.0-34.0) 03/19/23 09:58 MCHC 32.7 g/dL (30.0-36.0) 03/19/23 09:58 RDW 13.8 % (12.1-15.1) 03/19/23 09:58 Plt Count 305 10^3/cmm (130-400) 03/19/23 09:58 MPV 10.8 fL (7.4-10.4) H 03/19/23 09:58 Neut % (Auto) 90.0 % 03/19/23 09:58 Lymph % (Auto) 2.6 % 03/19/23 09:58 Milam % (Auto) 6.6 % 03/19/23 09:58 Eos % (Auto) 0.0 % 03/19/23 09:58 Baso % (Auto) 0.2 % 03/19/23 09:58 Neut # (Auto) 17.11 10^3/uL (1.8-7.7) H 03/19/23 09:58 Lymph # (Auto) 0.5 10^3/uL (0.8-4.8) L 03/19/23 09:58 Milam # (Auto) 1.3 10^3/uL (0.2-0.9) H 03/19/23 09:58 Eos # (Auto) 0.0 10^3/uL (0.0-0.8) 03/19/23 09:58 Baso # (Auto) 0.0 10^3/uL (0.0-0.1) 03/19/23 09:58 Nucleated RBC % (auto) 0 % 03/19/23 09:58 Nucleated RBCs # 0.0 /100WBC 03/19/23 09:58 PT 15.80 SECONDS (12.1-14.9) H 03/19/23 09:58 INR 1.22 (0.8-1.2) H 03/19/23 09:58 APTT 26.3 SECONDS (23.9-36.7) 03/19/23 09:58 Sodium 120 mmol/L (136-145) L 03/19/23 09:58 Potassium 6.4 mmol/L (3.5-5.1) H 03/19/23 09:58 Chloride 84 mmol/L (98-107) L 03/19/23 09:58 Carbon Dioxide 12 mmol/L (22-29) L 03/19/23 09:58 Anion Gap 30.4 (5-19) H 03/19/23 09:58 BUN 80 mg/dL (8-23) H 03/19/23 09:58 Creatinine 3.0 mg/dL (0.7-1.2) H 03/19/23 09:58 GFR Calculation Not Reportable 03/19/23 09:58 Glucose 323 mg/dL (65-115) H 03/19/23 09:58 Calculated Osmolality 287 mOsm/kg (285-295) 03/19/23 09:58 Calcium 7.9 mg/dL (8.5-10.5) L 03/19/23 09:58 Total Bilirubin 0.6 mg/dL (0.15-1.2) 03/19/23 09:58 AST 27 U/L (0-40) 03/19/23 09:58 ALT 20 U/L (0-41) 03/19/23 09:58 Alkaline Phosphatase 127 U/L (40-130) 03/19/23 09:58 Total Protein 5.5 g/dL (6.6-8.7) L 03/19/23 09:58 Albumin 2.6 g/dL (3.5-5.2) L 03/19/23 09:58 Globulin 2.9 g/dL (1.3-4.6) 03/19/23 09:58 Serum Ketones Negative (Negative) 03/19/23 09:50 Critical Care Time Critical Care Time: Critical Care Time: Yes Total Critical Care Time: 45 Attestation: The high probability of a clinically significant, sudden or life threatening deterioration of the patient's cardiovascular renal system(s) required my full and direct attention, intervention and personal management. The critical care time is as shown. This time is in addition to time spent performing any reported procedures but includes the following: [x] Data and vital sign review and interpretation [x] Patient assessment, examination and intervention [x] Documentation [x] Medication orders and management Discharge Plan Discharge Patient Disposition: Admitted As Inpatient Admit Provider: Zack Lemos Clinical Impression: Atrial fibrillation with rapid ventricular response, Abdominal ascites, Acute kidney injury, Hyperkalemia, Metabolic acidosis, Hyponatremia, Leukocytosis, High blood cholesterol, Diabetes type 2, controlled, Pancreatic cancer, Metastasis from pancreatic cancer Condition: Stable Coding Level of Care Code 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
--- NOTE | 2023-03-19 10:26 | PC.PHAR ---
PT STS HIS DOCTOR TOOK HIM OFF BOTH METOPROLOL TARTRATE 50 MG DAILY AND AMLODIPINE 10 MG DAILY A FEW DAYS AGO
[2023-03-19] MEDS: sodium chloride 0.9% 500 ML 999 ML IV (10:29)
[2023-03-19 10:32] LABS: Alanine Aminotransferase 20 U/L (0-41); Albumin Level 2.6 g/dL (3.5-5.2); Alkaline Phosphatase 127 U/L (40-130); Aspartate Amino Transferase 27 U/L (0-40); Blood Urea Nitrogen 80 mg/dL (8-23); Calcium 7.9 mg/dL (8.5-10.5); Carbon Dioxide 12 mmol/L (22-29); Chloride 84 mmol/L (98-107); Globulin 2.9 g/dL (1.3-4.6); Glucose 323 mg/dL (65-115); Osmolality Calculated 287 mOsm/kg (285-295); Sodium 120 mmol/L (136-145); Total Bilirubin 0.6 mg/dL (0.15-1.2); Total Protein 5.5 g/dL (6.6-8.7)
[2023-03-19 10:34] LABS: Anion Gap 30.4 (5-19); Potassium 6.4 mmol/L (3.5-5.1)
[2023-03-19 10:52] LABS: INR 1.22 (0.8-1.2)
[2023-03-19 10:53] LABS: Partial Thromboplastin Time 26.3 SECONDS (23.9-36.7)
[2023-03-19 11:04] LABS: Ketone (Acetest) Serum Negative (Negative)
--- NOTE | 2023-03-19 11:16 | CT_ITS ---
WS: [id number] CT ABDOMEN PELVIS TECHNIQUE: Noncontrast CT of the abdomen and pelvis with coronal and sagittal reformatted images. CLINICAL INFORMATION: elevated WBC, tachycardia COMPARISON: March 01, 2023 DLP: 738.[address] scans at [facility] use at least one of these dose optimization techniques: automated e xposure control; mA and/or kV adjustment per patient size (includes targeted exams where dose is matc hed to clinical indication); or iterative reconstruction. FINDINGS: Improved abdominal ascites compared to the prior CT. Small amount of perihepatic and perisplenic asci pau. Tiny LEFT pleural effusion. Normal noncontrast liver. Normal noncontrast spleen. Normal GE junct ion. Air-fluid level in the stomach. Pancreatic body and tail mass better visualized on the prior con trast-enhanced CT. Gallbladder is contracted. Adrenal glands are normal. No hydronephrosis in either kidney. Normal caliber abdominal aorta. Coronary calcification. Mild fecal rectal distention. Gaseous distention of the transverse colon with mild fecal retention in the LEFT colon likely due to adynamic ileus. Sigmoid stricture due to metastatic disease not exclude d. Narrowing involving the mid sigmoid colon. Extensive diffuse peritoneal carcinomatosis similar to the prior examination. Diffuse omental taking in the ventral mesentery. Stable sclerotic lesion LEFT femur. Ayala catheter with associated air in t he bladder presumably due to recent catheter placement bladder is decompressed. CT/CT abdomen pelvis wo con [id number] IMPRESSION: 1. Small LEFT pleural effusion. 2. Diffuse omental carcinomatosis with omental caking similar to the prior exa mination. 3. Predominantly gaseous distention of the transverse colon with mild fecal r etention in the LEFT colon. Findings likely due to adynamic ileus. Sigmoid stri cture not entirely excluded. Narrowing of the mid sigmoid colon with surroundin g carcinomatosis appears unchanged. 4. No hydronephrosis in either kidney. 5. Small amount of perihepatic and perisplenic ascites. 6. Previously described cystic mass in the body and tail the pancreas better v isualized on recent contrast-enhanced CT.
[2023-03-19] MEDS: calcium chloride 10% Syr 10 mL 1 GM IVP (11:24)
[2023-03-19] MEDS: sodium bicarbonate 1 mEq/mL SDV 50mL 100 MEQ IVP (11:24)
[2023-03-19] MEDS: insulin regular-human 100 units/1 mL 10 UNIT IVP (11:25)
[2023-03-19] MEDS: sodium polystyrene sulfonate 15 gm/60 mL Btl 30 GM PO (11:25)
--- NOTE | 2023-03-19 12:07 | P.HP_ITS ---
Providers/Chief Complaint Admitting Physician: Zack Lemos MD Primary Care Provider: Racheal Moraes MD Chief Complaint: fall, hypertension History of Present Illness Vikram Hebert is a 73 year old male presenting to the emergency department with progressive weakness, a controlled fall today with a caregiver present, and diminished p.o. intake. He was recently in the hospital, being discharged on March 03 with concern for pancreatic malignancy with widespread metastasis. Patient relates that he was biopsied in [place], and diagnosis of malignancy was confirmed although they are not sure if it was pancreatic or gastric. They are to see the oncology on Wednesday. Patient has had some palpitations and shortness of breath but no chest discomfort. He reports his abdomen hurts. Last paracentesis, was performed as an outpatient on March 17 yielding 6 L. He had had recurrent ascites with his newfound malignancy. No fevers at home. Review of Systems General: Reports: 10 or more systems reviewed and unremarkable except in HPI and below Card: Reports: palpitations; Denies: chest pain Resp: Reports: dyspnea; Denies: productive cough or non-productive cough GI: Reports: abdominal pain, nausea and early satiety; Denies: vomiting, hematochezia or melena Medications/Allergies Home Medications Medication Instructions Recorded Confirmed Last Taken Type glucagon 1 mg solution for 1 mg SUBCUT Q20M PRN hypoglycemia 10/08/21 03/19/23 03/10/23 Rx injection (Glucagon Emergency Kit) #1 ea metformin 500 mg tablet,extended See Rx Instructions .Route 08/17/22 03/19/23 03/18/23 Rx release 24 hr .COMPLEX #240 tabs blood sugar diagnostic (OneTouch #300 ea 12/04/22 03/19/23 Unknown Rx Ultra Test strips) acetaminophen 500 mg tablet 1,000 mg PO Q6H PRN Pain 03/02/23 03/19/23 03/09/23 History rosuvastatin 20 mg tablet 20 mg PO DAILY 03/02/23 03/19/23 03/18/23 History furosemide 40 mg tablet 40 mg PO DAILY@0800 #30 tabs 03/03/23 03/19/23 03/18/23 Rx pantoprazole 40 mg tablet,delayed 40 mg PO DAILY #30 tabs 03/03/23 03/19/23 03/18/23 Rx release (Protonix) Stool Softener 1 tab PO DAILY 03/08/23 03/19/23 03/18/23 History bupropion HCl 150 mg tablet,12 hr 150 mg PO BID 03/08/23 03/19/23 03/18/23 History sustained-release (Wellbutrin SR) oxycodone 5 mg tablet 5 mg PO Q6H PRN pain 15 days #60 03/16/23 03/19/23 03/18/23 Rx tabs blood sugar diagnostic (OneTouch 03/19/23 03/19/23 Unknown History Ultra Test strips) ondansetron HCl 4 mg tablet 4 mg PO TID PRN Nausea And Vomiting 03/19/23 03/19/23 Unknown History Allergies Allergy/AdvReac Type Severity Reaction Status Date / Time ondansetron [From Zofran] Allergy ADR-Nausea Verified 03/19/23 10:30 Penicillins Allergy ALGY-Hives Verified 03/19/23 10:30 PFSH Acute PFSH: Medical History (Updated 03/19/23 @ 12:27 by Zack Lemos MD) Abdominal ascites Coronary artery disease Diabetes mellitus, type II, insulin dependent Diabetes type 2, controlled High blood cholesterol Hypertension Mass of pancreas Family reports biopsy in [place] confirmed malignancy Surgical History H/O heart artery stent Family History Mother Cancer colon Sister Cancer Diabetes Brother Cancer Brother Dementia Grandmother Dementia Father Clotting disorder Other Hyperlipidemia Hypertension Denies family history of CAD (coronary artery disease) Psychiatric illness Chronic kidney disease (CKD) Suicide Anesthesia complication Bleeding disorder Family history of premature coronary artery disease Lung disease Stroke Social History Smoking and tobacco status: former smoker Alcohol intake: former Substance/Drug Use: never Household members: significant other Marital status: Life Partner service: No Current occupational status: retired Current gender identity: Male Vitals/I&O/Wt Last Vital Signs Temp 97.6 F 03/19/23 09:53 Pulse 106 H 03/19/23 11:50 Resp 20 H 03/19/23 11:50 BP 81/51 03/19/23 11:50 Pulse Ox 84 L 03/19/23 11:50 O2 Del Method Room Air 03/19/23 09:53 03/18/23 03/19/23 03/19/23 22:59 06:59 14:59 Intake Total 501 / 501 Balance 501 / 501 Weight last 48 hrs Weight 90.718 kg Physical Exam Narrative: General exam is a very weak appearing white male who can answer some questions, whose is attentive and at bedside. HEENT: Atraumatic and normocephalic. Oropharynx clear. Neck is supple no lymphadenopathy or thyromegaly Cardiovascular irregular, irregular and tachycardic with a heart rate of approx imately 110. No murmur. Lungs diminished breath sounds bilaterally but clear Abdomen trace ascites. Positive bowel sounds. Slight globalized tenderness. exam is deferred Extremities trace edema bilaterally, pitting Skin no rash Neuro no obvious focal deficits Urinary Catheter Management: Ayala: Cath Placed During This Visit: yes Urinary Catheter Date of Insertion: 03/19/23 Urinary Catheter Time of Insertion: 11:57 Data 03/19/23 09:58 03/19/23 09:58 Other Labs: INR is 1.22 Anion gap 30 Liver function test normal, albumin 2.6 Serum ketones negative I have ordered a urinalysis, CT abdomen and pelvis without contrast, chest x-ray no infiltrate. I personally visualized and agree with this reading. EKG demonstrates atrial fibrillation/flutter, left axis deviation, Q waves anteriorly with poor R wave progression Troponin was not ordered A&P Assessment and plan (1) Atrial fibrillation with rapid ventricular response: Patient presented with atrial fibrillation with rapid ventricular rate. He was placed on a Cardizem drip, and has become slightly hypotensive. He was previously on metoprolol which has since been discontinued. At this point with his acute kidney injury, extracellular volume depletion, etc. we will work towards making him more euvolemic and then reevaluating his heart rate and blood pressure. It is possible that the Cardizem could be decreased significantly. Secondary to his underlying malignancy, discussion of potentially moving to comfort care soon, I am not going to fully anticoagulate him currently. I think the risk outweighs the benefit. Will not perform troponin currently. Patient chest pain free and no acute concerns on EKG. This will not alter clinical management currently (2) Metabolic acidosis: Patient presents with significant metabolic acidosis, most likely secondary to acute kidney injury. Monitor for correction with daily labs, CMP (3) Acute kidney injury: Patient presents with acute kidney injury Place Ayala UA with micro CT abdomen and pelvis noncontrast BMP daily to monitor for improvement (4) Hyponatremia: Patient has significant hyponatremia, even in the face of hyperglycemia(correction) After appropriate fluid hydration, will repeat BMP and address sodium accordingly. (5) Leukocytosis: Patient has significant leukocytosis. This is likely secondary to his weakness and dehydration but cannot rule out infection Await urinalysis Await CT of abdomen and pelvis Secondary to recent paracentesis we will go ahead and place on vancomycin, meropenem. At this point I do not believe it is worth the risk of trying to obtain a paracentesis to rule out peritonitis considering clinically he has very little fluid, overall prognosis, family and the decision making process of consideration of more comfort cares. (6) Diabetes type 2, controlled: N.p.o. for now Mild sliding scale insulin, cautious (7) Mass of pancreas: Patient with history of mass of pancreatic head. Previous CT scan demonstrated omental caking. He was diagnosed with malignancy by biopsy at [facility] and we are awaiting records Oncology consultation was to occur on Wednesday. Oncology will consult on him here, reviewing this information giving an opinion regarding further/future treatment. I have concerned that he does not have enough performance ability to tolerate any treatment and will not in the future. (8) Hyperkalemia: Significant hyperkalemia on admission Bicarbonate was given, calcium was given, insulin and glucose were given, IV fluids were given I have some concern he may not tolerate Kayexalate, and I am awaiting a CT abdomen and pelvis. Repeat BMP after hydration. Plan Other medical problems as listed in his past medical history Now natural Heparin for DVT prophylaxis Attestations Medical Necessity Statement*: Will require greater than 2 midnight stay for evaluation and treatment of acute kidney injury, hyponatremia, hyperkalemia Critical Care Time: The high probability of a clinically significant, sudden or life threatening deterioration of the patient's [cardiac,renal, GI] system(s) required my full and direct attention, intervention and personal management. The critical care time is as shown. This time is in addition to time spent performing any reported procedures but includes the following: [x] Data and vital sign review and interpretation [x] Patient assessment, examination and intervention [x] Documentation [x] Medication orders and management Critical Care Time (min): 56 Coding Level of Care Code Critical Care >/= 30 minutes Critical care time (in minutes): 56 The high probability of a clinically significant, sudden or life threatening deterioration, as referenced in this documentation, required my full and direct attention, intervention and personal management. The critical care time shown is in addition to time spent performing any reported separately billable procedures and includes the following: [x] Data and vital sign review and interpretation [x ] Patient assessment, examination and intervention [x] Medication orders and management [x] Patient/Family updates as able [x] Care Coordination and Documentation. Diagnoses Atrial fibrillation with rapid ventricular response I48.91 Metabolic acidosis E87.20 Acute kidney injury N17.9 Hyponatremia E87.1 Leukocytosis D72.829 Diabetes type 2, controlled E11.9 Mass of pancreas K86.89 Hyperkalemia E87.5 Time Spent (min) 56
[2023-03-19 12:35] LABS: Lactic Sepsis W/Reflex 3.8 mmol/L (0.5-2.2)
--- NOTE | 2023-03-19 13:04 | ECG_ITS ---
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 Measurements Intervals [place] Rate: 99 P: 0 SD: 0 QRS: -58 QRSD: 104 T: 133 QT: 335 QTc: 430 Interpretive Statements ATRIAL FIBRILLATION WITH ABERRANT CONDUCTION OR VENTRICULAR PREMATURE COMPLEXES LEFT ANTERIOR FASCICULAR BLOCK [QRS AXIS <= -45, QR IN I, RS IN II] ST DEVIATION AND MODERATE T-WAVE ABNORMALITY, CONSIDER LATERAL ISCHEMIA [-0.1+ mV T-WAVE IN I/aVL/V5/V6] Compared to ECG 03/19/2023 10:28:41 Ventricular premature complex(es) now present Aberrant conduction of supraventricular beat(s) now present Left anterior fascicular block now present T-wave abnormality now present Possible ischemia now present Left-axis deviation no longer present Myocardial infarct finding no longer present Electronically Signed On 03-19-2023 13:31:15 CDT by Paulina Crowe M.D. [email or web address]
[2023-03-19] MEDS: meropenem 1,000 MG in sodium chloride 0.9% (plus) 50 ML 100 MG IV (13:13)
[2023-03-19] MEDS: sodium chloride 0.9% 1,000 ML 150 ML IV ×2 (13:13→19:19)
[2023-03-19] MEDS: heparin 5,000 unit/mL INJ 1 mL 5000 UNIT SUBCUT (13:14)
[2023-03-19 13:55] LABS: Calcium 8.8 mg/dL (8.5-10.5); Carbon Dioxide 14 mmol/L (22-29); Chloride 88 mmol/L (98-107); Glucose 241 mg/dL (65-115); Osmolality Calculated 289 mOsm/kg (285-295); Sodium 123 mmol/L (136-145)
[2023-03-19 14:02] LABS: Reflex Lactate Order REFLEX LACTIC ORDERD
[2023-03-19 14:05] LABS: Blood Urea Nitrogen 84 mg/dL (8-23)
[2023-03-19 14:21] LABS: Urine Color Dark Yellow (Yellow)
[2023-03-19 14:22] LABS: Amorphous Sediment Urine 3+ /hpf; Bacteria Urine 1+ /hpf; Bilirubin Urine 1+ (Negative); Blood Urine 2+ (Negative); Glucose Urine UA Norm (Normal); Hyaline Casts Urine 0-4 /lpf; Ketones Urine 1+ (Negative); Leukocyte Esterase Urine Negative (Negative); Nitrate Urine Negative (Negative); Protein Urine 1+ (Negative); RBC Urine 0-4 /hpf (0-2); Specific Gravity, Urine 1.025 (1.005-1.030); Squamous Epithelial Cell Urine 0-4 /hpf (0-5); Urine Appearance Cloudy (CLEAR); Urobilinogen Urine Norm (Negative); WBC Urine 0-4 /hpf (0-5); pH Urine 5 (5-7)
[2023-03-19 14:23] LABS: Add Urine Culture? No; Fine Granular Casts Urine 0-4 /lpf
[2023-03-19] MEDS: vancomycin 1,250 MG/250 ML PIGGYBACK 250 MG IV (14:34)
[2023-03-19] MEDS: ondansetron 2 mg/ML SDV 2 mL 4 MG IVP (15:45)
[2023-03-19 16:02] LABS: Lactic Acid level (Lactate) 3.3 mmol/L (0.5-2.2)
--- NOTE | 2023-03-19 17:12 | PM.CONSULT ---
Providers/Reason For Consult Consulting Physician/Specialty*: Medical oncology Reason for Consult*: Pancreatic cancer Requesting Physician: Zack Lemos MD Attending Physician: Zack Lemos MD Primary Care Provider: Racheal Moraes MD History of Present Illness History of Present Illness This is a 73-year-old man recently determined to have metastatic pancreatic cancer. He has hypertension, hyperlipidemia, type 2 diabetes, and coronary artery disease. On 03/01/2023 he was admitted to the hospital after presenting to the emergency room with abdominal pain and swelling. His symptoms had been worsening over period of several months, they also included generalized weakness, anorexia, and recent weight loss in the range of [address] abdomen/pelvis showed a complex cystic mass in the pancreatic body measuring 3.4 cm. Also noted was diffuse omental caking suggestive of diffuse metastatic disease involving the omentum along with a large amount of ascites. There was noted to be hepatic steatosis and evidence of liver cirrhosis. A 13 mm sclerotic lesion in the intertrochanteric region of the left femur was indeterminate. During the hospitalization he underwent paracentesis, with negative peritoneal fluid cytology. He was arranged to have further outpatient evaluation at [facility] at discharge on 03/03/2023. His evaluation at [facility] included EGD with endoscopic ultrasound and with FNA biopsy of pancreatic tail mass. The biopsy was positive for adenocarcinoma. The peritoneal fluid cytology also was positive for adenocarcinoma. He reportedly was noted there to have evidence of metastatic involvement in the liver. He had previously been scheduled to have an outpatient oncology consultation this coming Wednesday. However, this morning he returned to the emergency room after it fallen at home and was too weak to get up. He was noted to be in atrial fibrillation with rapid ventricular response. He also was found to have acute renal failure with BUN 80 mg/dL and creatinine 3.0 mg/dL, and he was significantly hyperkalemic with his initial potassium elevated at 6.4 mmol/L. At this point he appears to be comfortably, but he does complain that he is very weak, now to the point that he has virtually no activity. ECOG score is 4. His appetite has been poor. Over the past couple of years his weight had dropped about 25 pounds, thought to be due to dietary changes, but recently has had an additional weight loss in the range of 20 pounds. He does not have fever or night sweats. He does not complain of cough. He does have some shortness of breath and he has been having some mild chest discomfort. He is having pain in the mid to lower abdomen. He is also having nausea and hiccups, which eventually lead into vomiting. Bowel function has not been very good, and he had not been having very good urine output at home. In the past he has had some arthritis pain, but that has not been bothering him recently. He does not complain of headache and he has not been having any focal neurologic symptoms, but he does complain of feeling lightheaded. Review of Systems Narrative: Review of systems is as noted above. Medications/Allergies Home Medications Medication Instructions Recorded Confirmed Last Taken Type glucagon 1 mg solution for 1 mg SUBCUT Q20M PRN hypoglycemia 10/08/21 03/19/23 03/10/23 Rx injection (Glucagon Emergency Kit) #1 ea metformin 500 mg tablet,extended See Rx Instructions .Route 08/17/22 03/19/23 03/18/23 Rx release 24 hr .COMPLEX #240 tabs blood sugar diagnostic (OneTouch #300 ea 12/04/22 03/19/23 Unknown Rx Ultra Test strips) acetaminophen 500 mg tablet 1,000 mg PO Q6H PRN Pain 03/02/23 03/19/23 03/09/23 History rosuvastatin 20 mg tablet 20 mg PO DAILY 03/02/23 03/19/23 03/18/23 History furosemide 40 mg tablet 40 mg PO DAILY@0800 #30 tabs 03/03/23 03/19/23 03/18/23 Rx pantoprazole 40 mg tablet,delayed 40 mg PO DAILY #30 tabs 03/03/23 03/19/23 03/18/23 Rx release (Protonix) Stool Softener 1 tab PO DAILY 03/08/23 03/19/23 03/18/23 History bupropion HCl 150 mg tablet,12 hr 150 mg PO BID 03/08/23 03/19/23 03/18/23 History sustained-release (Wellbutrin SR) oxycodone 5 mg tablet 5 mg PO Q6H PRN pain 15 days #60 03/16/23 03/19/23 03/18/23 Rx tabs blood sugar diagnostic (OneTouch 03/19/23 03/19/23 Unknown History Ultra Test strips) ondansetron HCl 4 mg tablet 4 mg PO TID PRN Nausea And Vomiting 03/19/23 03/19/23 Unknown History Allergies Allergy/AdvReac Type Severity Reaction Status Date / Time ondansetron [From Zofran] Allergy ADR-Nausea Verified 03/19/23 10:30 Penicillins Allergy ALGY-Hives Verified 03/19/23 10:30 Current Medications Generic Name Dose Route Start Last Admin Trade Name Freq PRN Reason Stop Dose Admin Heparin Sodium (Porcine) 5,000 unit 03/19/23 12:30 03/19/23 13:14 Heparin 5,000 Unit/Ml Inj 1 Ml SUBCUT 5,000 unit Q12H THEO Administration Diltiazem HCl 100 mg/ Sodium 100 mls @ 0 mls/hr 03/19/23 10:15 03/19/23 10:25 Chloride IV 2.5 mg/hr .Q0M THEO 2.5 mls/hr Titration Protocol Per Protocol Meropenem 1,000 mg/ Sodium 50 mls @ 100 mls/hr 03/19/23 11:30 03/19/23 13:43 Chloride IV Infused Q24H THEO Infusion Protocol Sodium Chloride 1,000 mls @ 150 mls/hr 03/19/23 12:30 03/19/23 13:13 Sodium Chloride 0.9% IV 150 mls/hr .Q6H40M THEO Administration Vancomycin/PEG/NADA/Lysine/Water 1,250 mg in 250 mls @ 250 mls/hr 03/19/23 14:00 03/19/23 15:34 Vancocin IV Infused Q36H THEO Infusion PFSH Acute PFSH: Medical History (Updated 03/19/23 @ 17:39 by Fernando Oconnell MD) Abdominal ascites Coronary artery disease Diabetes type 2, controlled High blood cholesterol Hypertension Surgical History H/O heart artery stent Family History Mother Cancer colon Sister Cancer Diabetes Brother Cancer Brother Dementia Grandmother Dementia Father Clotting disorder Other Hyperlipidemia Hypertension Denies family history of CAD (coronary artery disease) Psychiatric illness Chronic kidney disease (CKD) Suicide Anesthesia complication Bleeding disorder Family history of premature coronary artery disease Lung disease Stroke Social History Smoking and tobacco status: former smoker Alcohol intake: former Substance/Drug Use: never Household members: significant other Marital status: Life Partner service: No Current occupational status: retired Current gender identity: Male Vitals/I&O/Wt Last Vital Signs Temp 97.6 F 03/19/23 09:53 Pulse 110 H 03/19/23 16:00 Resp 18 03/19/23 16:00 BP 168/105 03/19/23 16:15 Pulse Ox 97 03/19/23 16:15 O2 Del Method Nasal Cannula 03/19/23 13:08 O2 Flow Rate 3 03/19/23 13:08 03/19/23 03/19/23 03/19/23 06:59 14:59 22:59 Intake Total 551 / 551 250 / 801 Balance 551 / 551 250 / 801 Weight last 48 hrs Weight 90.718 kg Physical Exam Narrative: Constitutional: He appears very weak generally, but he is alert and he is responding appropriately. Eyes: Sclerae nonicteric. Conjunctivae clear. ENMT: No lesions noted in the oral cavity. Neck: Neck shows no mass or thyromegaly. Hematologic/Lymphatic: No cervical, clavicular, or axillary adenopathy. Respiratory: Lungs sound clear with some decrease in air movement bilaterally. Cardiovascular: Heart rhythm is slightly irregular. The rate is controlled. There is no murmur, gallop, or rub noted. Abdomen: Moderately distended and tympanic. Liver and spleen do not appear enlarged.There is no abdominal mass noted. There may be some ascites. There is no inguinal adenopathy noted. Extremities: Slight edema. Integumentary: No rashes. No suspicious skin lesions noted. Neurologic: He does not appear to have any focal neurologic deficit. Urinary Catheter Management: Ayala: Cath Placed During This Visit: yes Urinary Catheter Date of Insertion: 03/19/23 Urinary Catheter Time of Insertion: 11:57 Data 03/19/23 09:58 03/19/23 13:26 Micro: Microbiology 03/19/23 12:04 Blood Culture - Preliminary Blood SPECIMEN COLLECTED 03/19/23 12:11 Blood Culture - Preliminary Blood SPECIMEN COLLECTED A&P Assessment and plan (1) Malignant neoplasm of tail of pancreas: This is a 73-year-old man with newly diagnosed adenocarcinoma involving the body/tail of the pancreas, stage IV. His peritoneal fluid cytology also was positive for adenocarcinoma, and there was CT evidence of omental metastatic involvement. He reportedly also had evidence of metastatic disease in the liver. The CT findings and pathology results were reviewed with the patient and his family, and we discussed the clinical implications. He has advanced pancreatic cancer, and he has extremely poor performance status. They are aware that his disease is incurable. The only treatment option would be chemotherapy, with extremely low likelihood of benefit. Under the circumstances, the best option is to continue with symptomatic/supportive care measures. His prognosis obviously is very poor, and he will be appropriate for hospice provided he is not transitioned to skilled care at discharge from the hospital. Coding Level of Care Code 43338 Diagnoses Malignant neoplasm of tail of pancreas C25.2 Time Spent (min) 60
[2023-03-19 17:26] LABS: Glucose Point of Care 239 mg/dL (70-110)
[2023-03-19] MEDS: insulin lispro 100 unit/1 mL SUBCUT ×2 (17:46→20:34)
[2023-03-19] MEDS: acetaminophen 325 mg Tablet 650 MG PO (19:18)
[2023-03-19 20:35] LABS: Glucose Point of Care 222 mg/dL (70-110)
[2023-03-20] VITALS (45 sets, daily range): BP systolic 72–176; BP diastolic 37–126; PULSE 72–120; RESP 7–36; TEMP 37; O2SAT 76–100
[2023-03-20] MEDS: heparin 5,000 unit/mL INJ 1 mL 5000 UNIT SUBCUT ×2 (00:25→12:58)
[2023-03-20] MEDS: ondansetron 2 mg/ML SDV 2 mL 4 MG IVP ×2 (00:25→05:25)
[2023-03-20] MEDS: metoclopramide 5 mg/mL SDV 2 mL 10 MG IVP (01:10)
[2023-03-20] MEDS: sodium chloride 0.9% 1,000 ML 150 ML IV (02:54)
[2023-03-20] MEDS: morphine 4 mg/mL SDV 1 mL 2 MG IVP ×4 (02:55→22:24)
[2023-03-20] MEDS: sodium chloride 0.9% 500 ML 999 ML IV (03:05)
[2023-03-20 04:45] LABS: Basophils % 0.2 %; Hematocrit 40.7 % (42.0-52.0); Lymphocytes # 0.6 10^3/uL (0.8-4.8); Lymphocytes % 3.6 %; Mean Corpuscular HGB Conc 31.9 g/dL (30.0-36.0); Mean Corpuscular Hemoglobin 28.3 pg (28.0-34.0); Mean Corpuscular Volume 88.7 fl (80-94); Monocytes # 1.1 10^3/uL (0.2-0.9); Monocytes % 6.6 %; Neutrophils # 14.85 10^3/uL (1.8-7.7); Neutrophils % 89.1 %; Nucleated Red Blood Cells % 0 %; Platelet Count 287 10^3/cmm (130-400); Red Blood Count 4.59 10^6/uL (4.1-5.3); Red Cell Distribution Width 14.5 % (12.1-15.1); White Blood Count 16.7 10^3/uL (4.0-10.0)
[2023-03-20] MEDS: albumin 25 G/100 ML BAG 60 G IV ×3 (04:57→21:20)
[2023-03-20 05:15] LABS: Alanine Aminotransferase 20 U/L (0-41); Albumin Level 2.1 g/dL (3.5-5.2); Alkaline Phosphatase 139 U/L (40-130); Calcium 8.3 mg/dL (8.5-10.5); Carbon Dioxide 19 mmol/L (22-29); Chloride 90 mmol/L (98-107); Globulin 3.2 g/dL (1.3-4.6); Glucose 111 mg/dL (65-115); Magnesium 1.9 mg/dL (1.7-2.3); Osmolality Calculated 294 mOsm/kg (285-295); Sodium 128 mmol/L (136-145); Total Bilirubin 0.4 mg/dL (0.15-1.2); Total Protein 5.3 g/dL (6.6-8.7)
--- NOTE | 2023-03-20 05:19 | P.PNCC_ITS ---
Critical Care Event Note Received several calls regarding patients condition tonight. Patient persistently hypotensive 80/50's, and at one point 77/50. Stopped ca rdizem gtt. HR elevated 120's atrial fibrillation. Pain also uncontrolled. Ordered NS 500 bolus x2, 1 unit of albumin and levophed. Patient on 2 mics levo with better pressures. Amio bolus ordered, amiodarone gtt started. Overall improvement in vitals. Morphine 2 mg IV given x2 4 hours apart to control pain. Patient nauseated and vomitting. Zofran ineffective therefore ordered reglan 10 IV x1. Hypothermic as well, ordered daija hugger. Overall, patient more comfortable at this point with MAP > 70. Will continue to monitor. The high probability of a clinically significant, sudden or life threatening deterioration of the patient's [cardiovascular,gi] system(s) required my full and direct attention, intervention and personal management. The critical care time is as shown. This time is in addition to time spent performing any reported procedures but includes the following: [x] Data and vital sign review and interpretation [x] Patient assessment, intervention [x] Documentation [x] Medication orders and management Critical Care Time Code activated: No Critical Care Time (min): 30 Coding Level of Care Code Acute Code for Chg Fwd
[2023-03-20 05:23] LABS: Anion Gap 24.5 (5-19); Potassium 5.5 mmol/L (3.5-5.1)
[2023-03-20] MEDS: sodium chloride 0.9% 500 ML IV (05:23)
[2023-03-20 05:24] LABS: Aspartate Amino Transferase 28 U/L (0-40)
[2023-03-20 05:25] LABS: Blood Urea Nitrogen 90 mg/dL (8-23)
[2023-03-20 08:20] LABS: Creatine Phosphokinase 110 U/L (39-308)
[2023-03-20 08:40] LABS: ABG PCO2 34.9 mmHg (35-45); ABG PH Result 7.34 (7.35-7.45); Arterial Blood Gas Hematocrit 41.5 % (42-52); Base Excess ABG -6.2 mmol/L (-2.0-2.0); Blood Gas Allen Test Pos; Blood Gas Sample Type Arterial; Carboxyhemoglobin 0.8 %THgb (0.4-20.1); HCO3 ABG 18.8 mmol/L (22-26); HGB O2 Sat 83.7 % (95-100); Ionized Calcium Level - ABG 1.1 mmol/L (1.1-1.4); Methemoglobin 0.3 % (0.4-1.5); Oxygen Saturation ABG 84.6; PO2 ABG 50.4 mmHg (80.0-100.0); Potassium Level - ABG 4.8 mmol/L (3.5-5.0); Total Hemoglobin 13.5 g/dL (14-18)
[2023-03-20 08:41] LABS: Alveolar-Arterial Oxygen Gradi 80.4 mmHg (5-10); Blood Gas Operator Identificat MONRO; Blood Gas Sample Site Brachial, right; Oxygen Device NRB
[2023-03-20] MEDS: pantoprazole 40 mg SDV IVP (09:25)
[2023-03-20] MEDS: FUROsemide 10 mg/mL SDV 4mL 40 MG IVP (09:25)
[2023-03-20] MEDS: meropenem 1,000 MG in sodium chloride 0.9% (plus) 50 ML 100 MG IV (12:57)
[2023-03-20 13:07] LABS: Glucose Point of Care 140 mg/dL (70-110)
--- NOTE | 2023-03-20 15:02 | PM.PN ---
Subjective Subjective: Patient was seen and examined this morning, he had an eventful night, was, hypotensive, had to be started on, Levophed, also received some IV fluid bolus doses, he was continued on maintenance IV fluid, also received 1 dose of albumin, was started on amnio drip, after bolus amiodarone, for A-fib with RVR, Cardizem drip was discontinued, currently this morning, patient is severely hypoxic, with significant desaturation, currently requiring 15 L oxygen per minute through NRM, is also complaining of significant shortness of breath, ABG done this morning has shown: pH of 7.34 PCO2 34, PO2 50, on FiO2 of 100%, is intermittently going into rate of 130s to 140s, though he has not sustained them, hypothermic, Levophed requirement has significantly gone up, documented urine output so far 200 cc , BUN and serum creatinine has gone up, patient is also hyperkalemic, with metabolic acidosis, serum bicarb stands at 19. IV fluids has been discontinued, received 1 dose of Lasix, has been started on IV albumin, there was detailed discussion with, family members regarding goals of care, given the overall poor prognosis, either hospice or possible comfort care was discussed, family currently wants to continue with current medical management, They will rediscuss and decide how to proceed further. Medications: Medication Review Details: Generic Name Dose Route Start Last Admin Trade Name Freq PRN Reason Stop Dose Admin Acetaminophen 650 mg 03/19/23 12:17 03/19/23 19:18 Acetaminophen 32 5 Mg Tablet PO 650 mg Q6H PRN Administration MILD PAIN Aspirin 81 mg 03/20/23 09:00 03/20/23 08:33 Aspirin 81 Mg Ec Tablet PO Not Given DAILY THEO Heparin Sodium (Po rcine) 5,000 unit 03/19/23 12:30 03/20/23 12:58 Heparin 5,000 Un it/Ml Inj 1 Ml SUBCUT 5,000 unit Q12H THEO Administration Meropenem 1,000 mg / Sodium 50 mls @ 100 mls/ hr 03/19/23 11:30 03/20/23 12:57 Chloride IV 100 mls/hr Q24H THEO Administration Protocol Vancomycin/PEG/NAD A/Lysine/Water 1,250 mg in 250 m ls @ 250 mls/hr 03/19/23 14:00 03/19/23 15:34 Vancocin IV Infused Q36H THEO Infusion Norepinephrine Bit artrate 4 mg 254 mls @ 0 mls/h r 03/20/23 02:45 03/20/23 12:41 / Dextrose IV 10 mcg/min .Q0M THEO 38.1 mls/hr Titration Protocol Per Protocol Amiodarone HCl 900 mg/ 518 mls @ 0 mls/h r 03/20/23 02:45 03/20/23 03:04 Dextrose/ IV Misce llaneous IV 1 mg/min Supplies .Q0M HTEO 34.53 mls/hr Administration Protocol Per Protocol Albumin Human 25 g in 100 mls @ 60 mls/hr 03/20/23 13:00 03/20/23 12:57 Albumin IV 60 mls/hr Q8H THEO Administration Insulin Human Lisp ro 0 unit 03/19/23 18:00 03/20/23 12:58 Insulin Lispro 1 00 Unit/1 Ml SUBCUT Not Given WM&BEDTIME [facility] Protocol Morphine Sulfate 2 mg 03/20/23 13:17 03/20/23 13:25 Morphine 4 Mg/Ml Sdv 1 Ml IVP 2 mg Q4H PRN Administration SEVERE PAIN Ondansetron HCl 4 mg 03/19/23 12:17 03/20/23 05:25 Ondansetron 2 Mg /Ml Sdv 2 Ml IVP 4 mg Q6H PRN Administration NAUSEA AND VOMITI NG Pantoprazole Sodiu m 40 mg 03/20/23 09:00 03/20/23 09:25 Pantoprazole 40 Mg Sdv IVP 40 mg DAILY THEO Administration Vitals/I&O/Wt Last Vital Signs Temp 96.8 F L 03/19/23 20:00 Pulse 108 H 03/20/23 13:00 Resp 20 H 03/20/23 13:25 BP 82/37 03/20/23 13:00 Pulse Ox 89 L 03/20/23 13:00 O2 Del Method Non-Rebreather 03/20/23 11:18 O2 Flow Rate 15 03/20/23 11:18 03/20/23 03/20/23 03/20/23 06:59 14:59 22:59 Intake Total 2251.710 / 3967.710 133.858 / 133.858 Output Total 200 / 200 Balance 2051.710 / 3767.710 133.858 / 133.858 Weight last 48 hrs Weight 80.739 kg Weight 90.718 kg Physical Exam HENMT: COMMON NORMALS: normocephalic and atraumatic HEAD & SCALP: normocephalic and atraumatic Resp: OTHER: Diminished air entry bilaterally Cardio: OTHER: Irregularly irregular rhythm S1-S2 variable intensity GI: AUSCULTATION: Yes normoactive bowel sounds RECTAL EXAM: Yes deferred OTHER: Generalized abdominal tenderness present Extremity: COMMON NORMALS: no clubbing, cyanosis or edema and no pedal edema Urinary Catheter Management: Ayala: Cath Placed During This Visit: yes Reason for Continuing Indwelling Catheter: Accurate Measurement of Urinary Output in Critically Ill Patients Urinary Catheter Date of Insertion: 03/19/23 Urinary Catheter Time of Insertion: 11:57 Data 03/20/23 03:58 03/20/23 03:58 Micro: Microbiology 03/19/23 12:11 Blood Culture - Preliminary Blood NEGATIVE TO DATE 03/19/23 12:04 Blood Culture - Preliminary Blood NEGATIVE TO DATE A&P Assessment and plan (1) Atrial fibrillation with rapid ventricular response: Patient presented with atrial fibrillation with rapid ventricular rate. He was placed on a Cardizem drip, and has become slightly hypotensive. He was previously on metoprolol which has since been discontinued. At this point with his acute kidney injury, extracellular volume depletion, etc. we will work towards making him more euvolemic and then reevaluating his heart rate and blood pressure. It is possible that the Cardizem could be decreased significantly. Secondary to his underlying malignancy, discussion of potentially moving to comfort care soon, I am not going to fully anticoagulate him currently. I think the risk outweighs the benefit. Will not perform troponin currently. Patient chest pain free and no acute concerns on EKG. This will not alter clinical management currently (2) Metabolic acidosis: Patient presents with significant metabolic acidosis, most likely secondary to acute kidney injury. Monitor for correction with daily labs, CMP (3) Acute kidney injury: Patient presents with acute kidney injury Place Ayala UA with micro CT abdomen and pelvis noncontrast: Has not shown any obstructive uropathy BMP daily to monitor for improvement (4) Hyponatremia: Patient has significant hyponatremia, even in the face of hyperglycemia(correction) After appropriate fluid hydration, will repeat BMP and address sodium accordingly. (5) Leukocytosis: Patient has significant leukocytosis. This is likely secondary to his weakness and dehydration but cannot rule out infection Await urinalysis CT of abdomen and pelvis: blood cultures : Results appreciated Secondary to recent paracentesis we will go ahead and place on vancomycin, meropenem. At this point I do not believe it is worth the risk of trying to obtain a paracentesis to rule out peritonitis considering clinically he has very little fluid, overall prognosis, family and the decision making process of consideration of more comfort cares. (6) Diabetes type 2, controlled: N.p.o. for now Mild sliding scale insulin, cautious (7) Mass of pancreas: Patient with history of mass of pancreatic head. Previous CT scan demonstrated omental caking. He was diagnosed with malignancy by biopsy at [facility] and we are awaiting records Oncology consultation was to occur on Wednesday. Oncology will consult on him here, reviewing this information giving an opinion regarding further/future treatment. I have concerned that he does not have enough performance ability to tolerate any treatment and will not in the future. (8) Hyperkalemia: Significant hyperkalemia on admission Bicarbonate was given, calcium was given, insulin and glucose were given, IV fluids were given I have some concern he may not tolerate Kayexalate, and I am awaiting a CT abdomen and pelvis. Repeat BMP after hydration. Plan Other medical problems as listed in his past medical history Now natural Heparin for DVT prophylaxis Attestations Medical Necessity Statement*: Needs to be in hospital for management of, acute renal failure. Coding Level of Care Code Acute Code for [facility] Diagnoses Atrial fibrillation with rapid ventricular response I48.91 Metabolic acidosis E87.20 Acute kidney injury N17.9 Hyponatremia E87.1 Leukocytosis D72.829 Diabetes type 2, controlled E11.9 Mass of pancreas K86.89 Hyperkalemia E87.5
[2023-03-20] MEDS: ipratropium 0.5 mg/2.5 mL Neb INHALATION ×2 (16:49→20:13)
[2023-03-20] MEDS: levalbuterol 0.63 mg/3 mL Neb INHALATION ×2 (16:50→20:13)
[2023-03-20 17:38] LABS: Glucose Point of Care 197 mg/dL (70-110)
[2023-03-20] MEDS: insulin lispro 100 unit/1 mL SUBCUT ×2 (17:43→22:27)
[2023-03-20 21:31] LABS: Glucose Point of Care 170 mg/dL (70-110)
[2023-03-21] VITALS (56 sets, daily range): BP systolic 87–130; BP diastolic 58–79; PULSE 87–101; RESP 15–29; TEMP 36.1–36.7; O2SAT 93–100
[2023-03-21] MEDS: vancomycin 1,250 MG/250 ML PIGGYBACK 250 MG IV (01:28)
[2023-03-21] MEDS: heparin 5,000 unit/mL INJ 1 mL 5000 UNIT SUBCUT ×2 (01:28→11:49)
[2023-03-21 03:59] LABS: Basophils % 0.3 %; Hematocrit 35.1 % (42.0-52.0); Hemoglobin 11.9 g/dL (11.7-16.6); Lymphocytes # 0.3 10^3/uL (0.8-4.8); Lymphocytes % 2.7 %; Mean Corpuscular HGB Conc 33.9 g/dL (30.0-36.0); Mean Corpuscular Hemoglobin 29.2 pg (28.0-34.0); Mean Platelet Volume 11.7 fL (7.4-10.4); Monocytes # 0.3 10^3/uL (0.2-0.9); Monocytes % 2.7 %; Neutrophils # 10.96 10^3/uL (1.8-7.7); Neutrophils % 92.6 %; Nucleated Red Blood Cells % 0 %; Platelet Count 205 10^3/cmm (130-400); Red Blood Count 4.08 10^6/uL (4.1-5.3); Red Cell Distribution Width 14.5 % (12.1-15.1); White Blood Count 11.8 10^3/uL (4.0-10.0)
[2023-03-21 04:14] LABS: Alanine Aminotransferase 20 U/L (0-41); Albumin Level 2.9 g/dL (3.5-5.2); Alkaline Phosphatase 103 U/L (40-130); Anion Gap 26.2 (5-19); Aspartate Amino Transferase 38 U/L (0-40); Calcium 7.7 mg/dL (8.5-10.5); Carbon Dioxide 17 mmol/L (22-29); Chloride 89 mmol/L (98-107); Globulin 2.3 g/dL (1.3-4.6); Glucose 149 mg/dL (65-115); Osmolality Calculated 294 mOsm/kg (285-295); Potassium 5.2 mmol/L (3.5-5.1); Sodium 127 mmol/L (136-145); Total Bilirubin 0.6 mg/dL (0.15-1.2); Total Protein 5.2 g/dL (6.6-8.7)
[2023-03-21 04:16] LABS: Blood Urea Nitrogen 89 mg/dL (8-23)
[2023-03-21 04:38] LABS: Slide Review Slide Review Perform
[2023-03-21] MEDS: albumin 25 G/100 ML BAG 60 G IV ×3 (05:20→22:16)
[2023-03-21] MEDS: morphine 4 mg/mL SDV 1 mL 2 MG IVP ×4 (05:32→22:18)
[2023-03-21] MEDS: insulin lispro 100 unit/1 mL SUBCUT ×3 (07:04→22:14)
[2023-03-21 07:07] LABS: Glucose Point of Care 183 mg/dL (70-110)
--- NOTE | 2023-03-21 07:15 | PC.NURSE ---
repositioned accucheck done and linen change .. responds but very weak ,, wants to rest
[2023-03-21] MEDS: ipratropium 0.5 mg/2.5 mL Neb INHALATION ×4 (08:38→20:16)
[2023-03-21] MEDS: levalbuterol 0.63 mg/3 mL Neb INHALATION ×4 (08:38→20:16)
[2023-03-21] MEDS: aspirin 81 mg EC Tablet PO (10:13)
[2023-03-21] MEDS: pantoprazole 40 mg SDV IVP (10:13)
[2023-03-21] MEDS: FUROsemide 10 mg/mL SDV 10mL 80 MG IVP (11:28)
[2023-03-21] MEDS: meropenem 1,000 MG in sodium chloride 0.9% (plus) 50 ML 100 MG IV (11:29)
[2023-03-21 11:38] LABS: Glucose Point of Care 167 mg/dL (70-110)
--- NOTE | 2023-03-21 17:06 | P.PN_ITS ---
Subjective Subjective: Patient was seen and examined this morning, he had an eventful night, was, hypotensive, had to be started on, Levophed, also received some IV fluid bolus doses, he was continued on maintenance IV fluid, also received 1 dose of albumin, was started on amnio drip, after bolus amiodarone, for A-fib with RVR, Cardizem drip was discontinued, currently this morning, patient is severely hypoxic, with significant desaturation, currently requiring 15 L oxygen per minute through [facility], is also complaining of significant shortness of breath, ABG done this morning has shown: pH of 7.34 PCO2 34, PO2 50, on FiO2 of 100%, is intermittently going into rate of 130s to 140s, though he has not sustained them, hypothermic, Levophed requirement has significantly gone up, documented urine output so far 200 cc , BUN and serum creatinine has gone up, patient is also hyperkalemic, with metabolic acidosis, serum bicarb stands at 19. IV fluids has been discontinued, received 1 dose of Lasix, has been started on IV albumin, there was detailed discussion with, family members regarding goals of care, given the overall poor prognosis, either hospice or possible comfort care was discussed, family currently wants to continue with current medical management, They will rediscuss and decide how to proceed further. Medications: Medication Review Details: Generic Name Dose Route Start Last Admin Trade Name Freq PRN Reason Stop Dose Admin Acetaminophen 650 mg 03/19/23 12:17 03/19/23 19:18 Acetaminophen 32 5 Mg Tablet PO 650 mg Q6H PRN Administration MILD PAIN Aspirin 81 mg 03/20/23 09:00 03/20/23 08:33 Aspirin 81 Mg Ec Tablet PO Not Given DAILY THEO Heparin Sodium (Po rcine) 5,000 unit 03/19/23 12:30 03/20/23 12:58 Heparin 5,000 Un it/Ml Inj 1 Ml SUBCUT 5,000 unit Q12H THEO Administration Meropenem 1,000 mg / Sodium 50 mls @ 100 mls/ hr 03/19/23 11:30 03/20/23 12:57 Chloride IV 100 mls/hr Q24H THEO Administration Protocol Vancomycin/PEG/NAD A/Lysine/Water 1,250 mg in 250 m ls @ 250 mls/hr 03/19/23 14:00 03/19/23 15:34 Vancocin IV Infused Q36H THEO Infusion Norepinephrine Bit artrate 4 mg 254 mls @ 0 mls/h r 03/20/23 02:45 03/20/23 12:41 / Dextrose IV 10 mcg/min .Q0M THEO 38.1 mls/hr Titration Protocol Per Protocol Amiodarone HCl 900 mg/ 518 mls @ 0 mls/h r 03/20/23 02:45 03/20/23 03:04 Dextrose/ IV Misce llaneous IV 1 mg/min Supplies .Q0M THEO 34.53 mls/hr Administration Protocol Per Protocol Albumin Human 25 g in 100 mls @ 60 mls/hr 03/20/23 13:00 03/20/23 12:57 Albumin IV 60 mls/hr Q8H THEO Administration Insulin Human Lisp ro 0 unit 03/19/23 18:00 03/20/23 12:58 Insulin Lispro 1 00 Unit/1 Ml SUBCUT Not Given WM&BEDTIME [facility] Protocol Morphine Sulfate 2 mg 03/20/23 13:17 03/20/23 13:25 Morphine 4 Mg/Ml Sdv 1 Ml IVP 2 mg Q4H PRN Administration SEVERE PAIN Ondansetron HCl 4 mg 03/19/23 12:17 03/20/23 05:25 Ondansetron 2 Mg /Ml Sdv 2 Ml IVP 4 mg Q6H PRN Administration NAUSEA AND VOMITI NG Pantoprazole Sodiu m 40 mg 03/20/23 09:00 03/20/23 09:25 Pantoprazole 40 Mg Sdv IVP 40 mg DAILY THEO Administration Vitals/I&O/Wt Last Vital Signs Temp 97.6 F 03/21/23 04:00 Pulse 97 03/21/23 16:21 Resp 20 H 03/21/23 16:21 BP 92/66 03/21/23 16:00 Pulse Ox 98 03/21/23 16:21 O2 Del Method High Flow Nasal Cannula 03/21/23 16:21 O2 Flow Rate 11 03/21/23 16:21 03/21/23 03/21/23 03/21/23 06:59 14:59 22:59 Intake Total 654.00 / 1615.170 275 / 275 254 / 529 Output Total 50 / 100 Balance 604.00 / 1515.170 275 / 275 254 / 529 Weight last 48 hrs Weight 81.647 kg Weight 80.739 kg Physical Exam HENMT: COMMON NORMALS: normocephalic and atraumatic HEAD & SCALP: normocephalic and atraumatic Resp: OTHER: Diminished air entry bilaterally Cardio: OTHER: Irregularly irregular rhythm S1-S2 variable intensity GI: AUSCULTATION: Yes normoactive bowel sounds RECTAL EXAM: Yes deferred OTHER: Generalized abdominal tenderness present Extremity: COMMON NORMALS: no clubbing, cyanosis or edema and no pedal edema Urinary Catheter Management: Ayala: Cath Placed During This Visit: yes Reason for Continuing Indwelling Catheter: Accurate Measurement of Urinary Output in Critically Ill Patients Urinary Catheter Date of Insertion: 03/19/23 Urinary Catheter Time of Insertion: 11:57 Data 03/21/23 02:18 03/21/23 02:18 Micro: Microbiology 03/19/23 12:11 Blood Culture - Preliminary Blood NEGATIVE TO DATE 03/19/23 12:04 Blood Culture - Preliminary Blood NEGATIVE TO DATE A&P Assessment and plan (1) Atrial fibrillation with rapid ventricular response: Patient presented with atrial fibrillation with rapid ventricular rate. He was placed on a Cardizem drip, and has become slightly hypotensive. He was previously on metoprolol which has since been discontinued. At this point with his acute kidney injury, extracellular volume depletion, etc. we will work towards making him more euvolemic and then reevaluating his heart rate and blood pressure. It is possible that the Cardizem could be decreased significantly. Secondary to his underlying malignancy, discussion of potentially moving to comfort care soon, I am not going to fully anticoagulate him currently. I think the risk outweighs the benefit. Will not perform troponin currently. Patient chest pain free and no acute concerns on EKG. This will not alter clinical management currently (2) Metabolic acidosis: Patient presents with significant metabolic acidosis, most likely secondary to acute kidney injury. Monitor for correction with daily labs, CMP (3) Acute kidney injury: Patient presents with acute kidney injury Place Ayala UA with micro CT abdomen and pelvis noncontrast: Has not shown any obstructive uropathy BMP daily to monitor for improvement (4) Hyponatremia: Patient has significant hyponatremia, even in the face of hyperglycemia(correction) After appropriate fluid hydration, will repeat BMP and address sodium accordingly. (5) Leukocytosis: Patient has significant leukocytosis. This is likely secondary to his weakness and dehydration but cannot rule out infection Await urinalysis CT of abdomen and pelvis: blood cultures : Results appreciated Secondary to recent paracentesis we will go ahead and place on vancomycin, mindi openem. At this point I do not believe it is worth the risk of trying to obtain a paracentesis to rule out peritonitis considering clinically he has very little fluid, overall prognosis, family and the decision making process of consideration of more comfort cares. (6) Diabetes type 2, controlled: N.p.o. for now Mild sliding scale insulin, cautious (7) Mass of pancreas: Patient with history of mass of pancreatic head. Previous CT scan demonstrated omental caking. He was diagnosed with malignancy by biopsy at [facility] and we are awaiting records Oncology consultation was to occur on Wednesday. Oncology will consult on him here, reviewing this information giving an opinion regarding further/future treatment. I have concerned that he does not have enough performance ability to tolerate any treatment and will not in the future. (8) Hyperkalemia: Significant hyperkalemia on admission Bicarbonate was given, calcium was given, insulin and glucose were given, IV fluids were given I have some concern he may not tolerate Kayexalate, and I am awaiting a CT abdomen and pelvis. Repeat BMP after hydration. (9) Sepsis: Currently source unknown Continue broad-spectrum antibiotics for now Continue Levophed. Plan 73-year-old male with past medical history of recently diagnosed with pancreatic mass, concerning for malignancy with significant metastasis, recurrent ascites status post paracentesis, hypertension diabetes, he was recently admitted in the hospital at that time with chief complaint of generalized weakness significant weight loss abdominal pain, poor oral intake, increasing abdominal swelling, received diagnostic and therapeutic paracentesis, he was later discharged home and the plan was to get endoscopic ultrasound-guided fine-needle biopsy of the pancreatic mass, patient underwent biopsy at [place], with diagnosis of louis gnancy confirmed on biopsy, results of which is currently not available.Post discharge he did received paracentesis twice as outpatient, came in this time with chief complaint of worsening progressive weakness, fall at home, and poor oral intake, lab work done on the day of admission showed LEXII, hyponatremia, he was also found to be in A-fib with RVR, initially, he was volume resuscitated, was placed on Cardizem drip, was also empirically started on broad-spectrum antibiotic, given his recent history of recurrent paracentesis and possibility of peritonitis, on the day of admission overnight he, became hypotensive, Cardizem drip was stopped, he was started on amnio drip, after amnio bolus, on the eventful night he also received, IV fluid boluses, maintenance IV fluid was continued, later during the hospital course, patient, went into, acute renal failure, with extremely diminished urine output, and progressively worsening serum creatinine, with increasing Levophed requirement, as well as increasing oxygen requirement, currently is requiring close to 15 L oxygen through [facility], CT abdomen and pelvis: Without contrast done during the hospital stay showed Small LEFT pleural effusion.Diffuse omental carcinomatosis with omental caking similar to the prior examination.Predominantly gaseous distention of the transverse colon? with mild fecal retention in the LEFT colon. Findings likely due to adynamic ileus. Sigmoid stricture not entirely excluded. Narrowing of the mid sigmoid colon with surrounding carcinomatosis appears unchanged. No hydronephrosis in either kidney. Small amount of perihepatic and perisplenic ascites. Previously described cystic mass in the body and tail the pancreas better visualized on recent contrast-enhanced CT. blood cultures have remained negative, detailed discussion with, family members regarding goals of care, given the overall poor prognosis, either hospice or possible comfort care was discussed, family currently wants to continue with current medical management. They will rediscuss and decide how to proceed further.? ? Attestations Medical Necessity Statement*: Needs to in hospital for IV antibiotic. Coding Level of Care Code Acute Code for [facility] Fwd Diagnoses Atrial fibrillation with rapid ventricular response I48.91 Metabolic acidosis E87.20 Acute kidney injury N17.9 Hyponatremia E87.1 Leukocytosis D72.829 Diabetes type 2, controlled E11.9 Mass of pancreas K86.89 Hyperkalemia E87.5 Sepsis A41.9
[2023-03-21 17:17] LABS: Glucose Point of Care 149 mg/dL (70-110)
[2023-03-21 22:14] LABS: Glucose Point of Care 195 mg/dL (70-110)
[2023-03-22] VITALS (37 sets, daily range): BP systolic 71–112; BP diastolic 46–82; PULSE 59–116; RESP 14–24; TEMP 36.1; O2SAT 85–100
[2023-03-22] MEDS: heparin 5,000 unit/mL INJ 1 mL 5000 UNIT SUBCUT (02:03)
[2023-03-22 04:07] LABS: Hematocrit 34.1 % (42.0-52.0); Mean Corpuscular HGB Conc 32.3 g/dL (30.0-36.0); Mean Corpuscular Hemoglobin 28.9 pg (28.0-34.0); Mean Corpuscular Volume 89.5 fl (80-94); Mean Platelet Volume 11.6 fL (7.4-10.4); Platelet Count 155 10^3/cmm (130-400); Red Blood Count 3.81 10^6/uL (4.1-5.3); Red Cell Distribution Width 14.9 % (12.1-15.1); White Blood Count 16.1 10^3/uL (4.0-10.0)
[2023-03-22 04:25] LABS: Alanine Aminotransferase 26 U/L (0-41); Albumin Level 3.3 g/dL (3.5-5.2); Alkaline Phosphatase 130 U/L (40-130); Anion Gap 28.8 (5-19); Aspartate Amino Transferase 57 U/L (0-40); Calcium 7.6 mg/dL (8.5-10.5); Carbon Dioxide 14 mmol/L (22-29); Chloride 88 mmol/L (98-107); Globulin 2.5 g/dL (1.3-4.6); Glucose 140 mg/dL (65-115); Osmolality Calculated 292 mOsm/kg (285-295); Potassium 5.8 mmol/L (3.5-5.1); Sodium 125 mmol/L (136-145); Total Bilirubin 0.6 mg/dL (0.15-1.2); Total Protein 5.8 g/dL (6.6-8.7)
[2023-03-22] MEDS: albumin 25 G/100 ML BAG 60 G IV (04:28)
[2023-03-22 04:29] LABS: Total Cells Counted 100 (0-100)
[2023-03-22 04:31] LABS: Absolute Neutrophil 14.8 10^3/cmm (1.4-6.5); Absolute Segmented Neutrophil 14.8 10/cmm (1.6-7.1); Eosinophils 0 %; Lymphocytes 2 %; Lymphocytes Absolute 0.3 10^3/cmm (1.2-3.4); Platelet Estimate Normal (Normal); Segmented Neutrophils 92 %
[2023-03-22 04:32] LABS: Burr Cells 2+; Toxic Granulation 2+
[2023-03-22 04:41] LABS: Blood Urea Nitrogen 96 mg/dL (8-23)
[2023-03-22 07:19] LABS: Glucose Point of Care 178 mg/dL (70-110)
[2023-03-22] MEDS: ipratropium 0.5 mg/2.5 mL Neb INHALATION (08:02)
[2023-03-22] MEDS: levalbuterol 0.63 mg/3 mL Neb INHALATION (08:02)
[2023-03-22] MEDS: aspirin 81 mg EC Tablet PO (08:40)
[2023-03-22] MEDS: pantoprazole 40 mg SDV IVP (08:40)
[2023-03-22] MEDS: morphine 4 mg/mL SDV 1 mL 2 MG IVP ×2 (09:11→13:48)
[2023-03-22] MEDS: insulin lispro 100 unit/1 mL SUBCUT (09:12)
--- NOTE | 2023-03-22 10:27 | PC.NURSE ---
Dr. Cespedes in room discussing goals of care with patient and family, . Patient asking about in hospital hospice.
--- NOTE | 2023-03-22 12:20 | P.PN_ITS ---
Subjective Subjective: Detailed family meeting conducted today , sister and friend present in the room at decided to pursue inpatient hospice, social welfare administrator notified We will discontinue albuterol and Levophed Patient carries guarded prognosis He is not able to eat at all Abdomen is getting distended Patient is starting to show signs of respiratory distress Currently on high flow nasal cannula 6 to 8 L Vitals/I&O/Wt Last Vital Signs Temp 97.0 F L 03/22/23 04:00 Pulse 99 03/22/23 10:00 Resp 15 03/22/23 10:00 BP 103/67 03/22/23 10:00 Pulse Ox 99 03/22/23 10:00 O2 Del Method High Flow Nasal Cannula 03/22/23 08:03 O2 Flow Rate 8 03/22/23 08:03 03/21/23 03/22/23 03/22/23 22:59 06:59 14:59 Intake Total 895.695 / 1170.695 385.42 / 1556.115 253.162 / 253.162 Output Total 50 / 50 10 / 60 Balance 845.695 / 1120.695 375.42 / 1496.115 253.162 / 253.162 Weight last 48 hrs Weight 82.554 kg Weight 81.647 kg Physical Exam Narrative: Very lethargic and fatigued Cachectic, malnourished Ascites Tender abdomen GCS 15 Nonfocal neuro exam Verbally redirectable Able to correspond with the family as well 8 L high flow cannula Currently on Levophed Urinary Catheter Management: Ayala: Cath Placed During This Visit: yes Reason for Continuing Indwelling Catheter: Accurate Measurement of Urinary Output in Critically Ill Patients Urinary Catheter Date of Insertion: 03/19/23 Urinary Catheter Time of Insertion: 11:57 Data 03/22/23 03:49 03/22/23 03:49 A&P Assessment and plan (1) Sepsis: (2) Malignant neoplasm of tail of pancreas: (3) Hyperkalemia: (4) Pancreatic cancer: (5) Hyperkalemia: (6) Hyponatremia: (7) Metabolic acidosis: (8) Atrial fibrillation with rapid ventricular response: (9) Mass of pancreas: (10) Abdominal ascites: (11) H/O heart artery stent: (12) Diabetes type 2, controlled: (13) Hospice care: Plan Detailed family meeting conducted Previous notes, labs reviewed Leukocytosis, hyponatremia, LEXII, Patient is requiring Levophed Patient not an ideal candidate for PEG tube placement or IV nutrition Family meeting conducted and decision was made to pursue inpatient hospice: loft worker notified Comfort measures only Changed goals of care from AMD to comfort measures/hospice does not want to place him to a group home or take him home Patient carries guarded prognosis with stage IV pancreatic cancer Transfer out of ICU ICU nurse present in the room loft worker notified Attestations Medical Necessity Statement*: Transfer out of ICU Diagnoses Sepsis A41.9 Malignant neoplasm of tail of pancreas C25.2 Hyperkalemia E87.5 Pancreatic cancer C25.9 Hyponatremia E87.1 Metabolic acidosis E87.20 Atrial fibrillation with rapid ventricular response I48.91 Mass of pancreas K86.89 Abdominal ascites R18.8 H/O heart artery stent Z95.5 Diabetes type 2, controlled E11.9 Hospice care Z51.5
--- NOTE | 2023-03-22 13:28 | PC.SOCIAL ---
Pg 2 IMM Explained to pt's family Pg 2 IMM. No questions voiced. Provided pt a copy. Initialed, dated, & timed a copy & placed in chart.
[2023-03-22] MEDS: morphine 4 mg/mL SDV 1 mL IVP (15:40)
[2023-03-22] MEDS: morphine 10 mg/0.5 mL oral liq UD SUBLINGUAL (16:31)
--- NOTE | 2023-03-22 17:21 | PC.NURSE ---
TOD 170, MTS notified at 1715
--- NOTE | 2023-03-22 17:23 | PM.DDS ---
Discharge Providers DDS Date of Admission: 03/19/23 11:25 Date Summary Completed: 03/22/23 Attending Provider at Admission: Zack Lemos MD Time of : 17:01 Attending Provider at Discharge: Pepito Cespedes MD Primary Care Provider: Racheal Moraes MD DS Diagnoses Hospital Diagnoses (1) Sepsis: (2) Malignant neoplasm of tail of pancreas: (3) Hyperkalemia: (4) Pancreatic cancer: (5) Hyponatremia: (6) Metabolic acidosis: (7) Atrial fibrillation with rapid ventricular response: (8) Mass of pancreas: Permanent Problem Comments: Family reports biopsy in [place] confirmed malignancy (9) Abdominal ascites: (10) H/O heart artery stent: (11) Diabetes type 2, controlled: (12) Hospice care: Reason for Visit Reason for Visit fall, hypertension Summary Date and Time of Date of : 03/22/23 Time of : 17:01 Summary Summary: 73-year-old male with stage IV pancreatic cancer with mets, acute renal failure, electrolyte imbalance, patient decided to pursue hospice care patient was seen by 3 physicians, they are all in agreement with hospice care, multiple family meetings conducted. Additional Data Advance directives?: Yes Discharge Plan Discharge Condition: Stable Prescriptions: No Action Glucagon Emergency Kit (human) 1 mg recon soln 1 mg SUBCUT Q20M PRN (Reason: hypoglycemia) Qty: 1 1RF Rx Instructions: until target blood sugar attained metformin 500 mg tablet extended release 24 hr See Rx Instructions .ROUTE .COMPLEX Qty: 240 2RF Dose Instruction: Take 2 tablets by mouth twice daily Rx Instructions: Take 2 tablets (1,000mg) by mouth in the am and 1 tab (500mg) bedtime (DME) OneTouch Ultra Test Strip See Rx Instructions .ROUTE .COMPLEX Qty: 300 0RF Dose Instruction: USE 1 STRIP TO CHECK GLUCOSE THREE TIMES DAILY Rx Instructions: USE 1 STRIP TO CHECK GLUCOSE THREE TIMES DAILY oxycodone 5 mg tablet 5 mg PO Q6H PRN (Reason: pain) 15 Days Qty: 60 0RF acetaminophen 500 mg Tablet 1,000 mg PO Q6H PRN (Reason: Pain) rosuvastatin 20 mg tablet 20 mg PO DAILY furosemide 40 mg Tablet 40 mg PO DAILY@0800 Qty: 30 0RF pantoprazole [Protonix] 40 mg tablet,delayed release (DR/EC) 40 mg PO DAILY Qty: 30 0RF bupropion HCl [Wellbutrin SR] 150 mg tablet sustained-release 12 hr 150 mg PO BID Stool Softener 1 tab PO DAILY ondansetron HCl 4 mg tablet 4 mg PO TID PRN (Reason: Nausea And Vomiting) (DME) OneTouch Ultra Test Strip MISCELLANEOUS Referrals: Racheal Moraes MD [Primary Care Provider] - DS Attestations Time Spent in /Discharge Care*: greater than 30 min Quality - AMI: AMI present?: No Quality - Stroke: CVA present?: No Quality - VTE: VTE present?: No Coding Level of Care Code Acute Code for [facility] Fwd Diagnoses Sepsis A41.9 Malignant neoplasm of tail of pancreas C25.2 Hyperkalemia E87.5 Pancreatic cancer C25.9 Hyponatremia E87.1 Metabolic acidosis E87.20 Atrial fibrillation with rapid ventricular response I48.91 Mass of pancreas K86.89 Abdominal ascites R18.8 H/O heart artery stent Z95.5 Diabetes type 2, controlled E11.9 Hospice care Z51.5
--- NOTE | 2023-03-22 17:40 | PC.NURSE ---
Addendum entered by Kareem Hernandez RN 03/22/23 17:44: Hospice team called and notified. Original Note: TORenee 1701, Family at bedside, MTS called and declined patient, [facility] in [place], [place] requested and called. Post mortem care completed.
--- NOTE | 2023-03-22 18:51 | PC.NURSE ---
MTS declined patient.
--- NOTE | 2023-03-22 18:51 | PC.NURSE ---
[facility] here to transport patient.
== END 2023-03-22 18:30 | disposition expired | DRG 309 ==
LOC: ER 10:51 → ICU 11:55
PROVIDERS: Internal Medicine; Admitting Provider Internal Medicine; Emergency Provider Family Medicine; PCP Family Medicine; Visit Provider Internal Medicine
DX: I48.91 Unspecified atrial fibrillation (principal); C25.2 Malignant neoplasm of tail of pancreas; N17.9 Acute kidney failure, unspecified; R18.8 Other ascites; E87.20 Acidosis, unspecified; E87.1 Hypo-osmolality and hyponatremia; C78.7 Secondary malignant neoplasm of liver and intrahepatic bile duct; C78.6 Secondary malignant neoplasm of retroperitoneum and peritoneum; I25.10 Atherosclerotic heart disease of native coronary artery without angina pectoris; Z95.5 Presence of coronary angioplasty implant and graft; E11.9 Type 2 diabetes mellitus without complications; Z79.4 Long term (current) use of insulin; E78.00 Pure hypercholesterolemia, unspecified; I10 Essential (primary) hypertension; Z87.891 Personal history of nicotine dependence; K76.0 Fatty (change of) liver, not elsewhere classified; K74.60 Unspecified cirrhosis of liver; E87.5 Hyperkalemia; D72.829 Elevated white blood cell count, unspecified; E86.0 Dehydration; Z51.5 Encounter for palliative care; R29.6 Repeated falls
CPT/HCPCS: 36415; 36416; 36600; 49083; 51702; 71045; 74176; 80048; 80051; 80053; 81001; 82009; 82330; 82550; 82805; 82962; 83605; 83735; 85007; 85025; 85610; 85730; 87040; 93005; 94640; 96365; 96372; 96375; 96376; 99285; A4222; C9113; J0282; J1644; J1815; J1940; J2185; J2270; J2405; J2765; J3370; J3490; J7030; J7040; J7060; J7614; J7644; P9046